=== PATIENT | female | born 1935 | race Caucasian/White ===

== ENCOUNTER 2017-03-17 06:27 | Inpatient (IN) | payer MEDICARE, BC ==
[2017-03-17] MEDS ORDERED: Ondansetron INJ* 2 MG/ML VIAL IV ONE (07:37)
[2017-03-17] MEDS ORDERED: Morphine INJ* 2 MG/ML 1 ML SYRINGE IV ONE ×2 (07:37→10:36)
[2017-03-17] MEDS ORDERED: NS 0.9% 1000 ML* 1,000 ML IV ONE (07:37)
[2017-03-17 07:54] LABS: Hematocrit 36 % (35-47); Hemoglobin 11.6 g/dl (12.0-16.0); Mean Corpuscular HGB Conc 32 g/dl (31-36); Mean Corpuscular Hemoglobin 29 pg (27-31); Mean Corpuscular Volume 90 fL (80-97); Mean Platelet Volume 9 um3 (7.4-10.4); Red Blood Count 4.02 10^6/ul (4.0-5.4); Red Cell Distribution Width 13 % (10.5-15); White Blood Count 11.1 10^3/ul (3.5-10.8)
[2017-03-17 08:05] LABS: Albumin 4.1 g/dL (3.2-5.2); BUN/Creatinine Ratio 37.3 (8-20); Calcium 9.6 mg/dL (8.6-10.3); EGFR Non-African American 47.4 (>60); Globulin 3.1 g/dL (2-4); Potassium 4.4 mmol/L (3.5-5.0); Total Bilirubin 0.7 mg/dL (0.2-1.0); Total Protein 7.2 g/dL (6.4-8.9)
[2017-03-17] MEDS ORDERED: Iodixanol* (CONTRAST) 320 MG/ML 100 ML SDV IV ONE (08:09)
[2017-03-17 08:42] LABS: Urine Bacteria Absent (Absent); Urine Bilirubin Negative (Negative); Urine Glucose Negative (Negative); Urine Nitrite Negative (Negative)
--- NOTE | 2017-03-17 10:19 | RAD ---
CLINICAL HISTORY: Left lower quadrant tenderness COMPARISON: None TECHNIQUE: Multiple contiguous axial CT scans were obtained of the abdomen and pelvis after the administration of intravenous contrast. Coronal and sagittal multiplanar reformations are submitted for review. Oral contrast was administered. Delayed images were obtained through the abdomen and pelvis. FINDINGS: LUNG BASES: There is a calcified granuloma of the right lung base LIVER: There is a simple hepatic cyst in the left lobe. BILE DUCTS: There is no intrahepatic or extrahepatic biliary dilatation. GALLBLADDER: The gallbladder is normal, without pericholecystic inflammatory change. PANCREAS: The pancreas is normal, without mass or ductal dilatation. SPLEEN: Normal in size and appearance. UPPER GI TRACT: Evaluation of the gastrointestinal tract is limited by incomplete gastric distention. There is mucosal thickening of the gastric antrum and pylorus with probable ulceration in the region of the pylorus. There is trace amount of free intraperitoneal gas SMALL BOWEL AND MESENTERY: The small bowel is normal in contour, course, and caliber. There is no obstruction or dilatation. COLON: The colon is normal in contour, course, caliber. There is no pericolonic inflammatory change. ADRENALS: Normal bilaterally. KIDNEYS: The kidneys are normal in shape, size, contour, and axis. There is no hydronephrosis or nephrolithiasis. BLADDER: There is a diverticulum of the bladder on the right, measuring approximately 2.5 cm in size. PELVIC ORGANS: The pelvic organs are not visualized. AORTA: There is calcific atherosclerotic disease of the abdominal aorta and its branches, without aneurysmal dilatation IVC: Unremarkable LYMPH NODES: There is no lymphadenopathy by size criteria. ABDOMINAL WALL: There is no evidence for abdominal wall hernia. BONES AND SOFT TISSUES: There are mild diffuse degenerative changes. OTHER: There is a small amount of free intraperitoneal fluid. As noted above, there is a small amount of free intraperitoneal gas. IMPRESSION: 1. SMALL AMOUNT OF FREE INTRAPERITONEAL GAS AND FREE INTRAPERITONEAL FLUID CONSISTENT WITH PERFORATION. 2. THERE IS MUCOSAL THICKENING AND ULCERATION OF THE DISTAL STOMACH AND PYLORUS. THE DIFFERENTIAL INCLUDES PEPTIC ULCER DISEASE, WELL ULCERATED MUCOSAL NEOPLASM. THIS IS LIKELY THE SITE OF PERFORATION GIVEN THE PRESENCE OF FREE AIR. 3. PRELIMINARY FINDINGS WERE DISCUSSED WITH DR. LYLE IN THE EMERGENCY DEPARTMENT AT APPROXIMATELY 10:15 AM ON MARCH 17, 2017.
[2017-03-17] MEDS ORDERED: Piperac/Tazob 3.375 gm in NS* 3.375 GM/100 ML BAG IVPB ONE ×2 (10:20→12:00)
[2017-03-17] MEDS ORDERED: Ondansetron INJ* 2 MG/ML VIAL IV PRN (11:20)
[2017-03-17] MEDS ORDERED: HYDROmorphone* 1 MG/ML 1 ML SYR IV PRN (11:20)
[2017-03-17] MEDS ORDERED: Piperac/Tazob 3.375 gm in NS* 3.375 GM/100 ML BAG IVPB SCH (16:00)
[2017-03-17] MEDS: Piperac/Tazob 3.375 gm in NS* 3.375 GM/100 ML BAG IVPB SCH ×2 (16:49→23:14)
--- NOTE | 2017-03-17 17:44 | HP ---
ADMISSION HISTORY AND PHYSICAL: DATE OF ADMISSION: 03/17/17 PATIENT OF: Dr. Arnie Dash. (DICTATED BY JERMAINE MENCHACA) REASON FOR ADMISSION: Abdominal pain. HISTORY OF PRESENT ILLNESS: Ms. Santos is a pleasant 81-year-old female, who presented to the emergency room earlier this morning with complaints of progressively worsening epigastric and left upper quadrant abdominal pain since this morning. The patient reports that she had experienced some vague upper abdominal discomfort on and off for the last few days that has gotten significantly worse about 3 o'clock this morning. She reports also episodes of nausea and a couple of times of vomiting as well. She was awaken this morning with increased intensity and sharpness of her pain. She called her friend and she came to the emergency room later this morning. She has never experienced anything like that in the past. The patient denies any alcohol intake. She does note having taken some more aspirin in the last week due to some arthritic aches and pains. During her emergency room visit, she was noted to have no distention of the abdomen; however, CT scan of the abdomen and pelvis revealed findings consistent with perforated viscus likely perforated peptic ulcer. At the time of admission, the patient experienced some mild episode of abdominal pain that was relieved by sitting up straight. She described it as sharp pain localized to the left upper quadrant with radiation to the epigastric area. She denied any nausea or vomiting at this time. She also denies any changes in the bowel habits or dark coloration of the stools. Otherwise, the patient was relatively healthy prior to her episode of abdominal pain. She has significant past medical history that was revealed from her old records as well. Given her CT scan findings, we will admit the patient for IV hydration and antibiotic treatment and likely to be taken to the OR later today for diagnostic laparoscopy and possible repair of a perforated ulcer. PAST MEDICAL HISTORY: Significant for essential hypertension, congenital aortic coarctation, migraine, and rosacea. PAST SURGICAL HISTORY: Significant for repair of congenital aortic coarctation in [place] as well as heart catheterization, and aortic valve replacement back in 1991 at the [facility]. She also has history of hysterectomy with removal of tumors and adhesions back in 1982. She also had removal of uterine cyst and ovarian cyst back in 1972. She also had multiple D and C back in the late 60s as well as heart catheterization in [place] back in the mid 80s. She also had bilateral cataract extraction back in 2009 as well as biopsy and lumpectomy of the right breast for a benign tumor back in 2002. The patient also had multiple orthopedic surgeries including neuroma excision from her foot and right hand orthopedic surgery due to a history of osteoarthritis. She also had a large mole removed from her left buttock back in 1940s as well as tonsillectomy and adenoidectomy as a child. CURRENT MEDICATIONS: Her medications at home include: 1. Fosamax 70 mg p.o. q. week. 2. Vitamin C tablets 250 mg q. daily. 3. Lipitor 10 mg q.h.s. 4. Calcium carbonate 1 tablet a day. 5. Enalapril 5 mg q. daily. 6. Mobic 15 mg b.i.d. 7. Metronidazole topical cream use as instructed at affected areas. ALLERGIES: She has no known drug allergies. FAMILY HISTORY: She denies any family history of peptic ulcer disease or colorectal malignancies. SOCIAL HISTORY: The patient is a nonsmoker who denies alcohol intake and caffeine intake is minimal REVIEW OF SYSTEMS: See HPI, otherwise negative. She denies any headache, dizziness, syncope. No chest pain, shortness of breath, or wheezing. She denies any fever, chills, or recent changes in weight. She does admit to abdominal pain with associated nausea and vomiting, but denies any changes in the bowel habits or bleeding per rectum. PHYSICAL EXAMINATION GENERAL: She is a pleasant, elderly female, comfortable, sitting on bed and in no acute distress or discomfort. VITALS: Her most recent set of vitals revealed blood pressure of 168/63, pulse of 83, respirations of 16, O2 sat of 98% on room air, and temperature of 99 degrees. HEENT: Sclerae anicteric. PERRLA. EOMs intact. Oropharynx is pink, moist with no exudate. Neck: Supple. Trachea midline. No cervical adenopathy, thyromegaly, or JVD. Lungs: Clear to auscultation bilaterally. Heart: Regular rate and rhythm. Normal S1 and S2 without rubs, murmurs, or gallops. Back: With normal curvature. No CVA tenderness. Abdomen: Soft and nondistended. There is moderate left upper quadrant and epigastric tenderness noted. Some guarding as well, but no rigidity or rebound tenderness. There are no hernias, masses, or organomegaly. Old scars from prior abdominal surgeries were noted, all appeared to be well healed. Breast Exam: Deferred at this time. Extremities: Without cyanosis, clubbing, or edema. Neurologic: Grossly intact. Rectal Exam: Deferred at this time. LABORATORY WORKUP: The patient had CBC at the emergency room revealing a white count of 11,000, hemoglobin 11.6, hematocrit 36, and platelets of 310. Chemistry with sodium of 139, potassium 4.4, chloride 105, CO2 23, BUN 41, and creatinine of 1.1. Her lactic acid was 2.9 and LFTs and lipase essentially within normal limits. ACCESSORY DIAGNOSTIC DATA: CT scan of the abdomen and pelvis performed this morning revealed findings consistent with a small amount of free intraperitoneal gas and fluid consistent with perforation with some mucosal thickening and ulceration of the distal stomach that likely represent a perforated peptic ulcer disease. IMPRESSION: An elderly female with worsening abdominal pain and CT scan finding consistent with probable perforated peptic ulcer. PLAN: The patient will be admitted under surgical services. We will keep her n.p.o. for now with IV resuscitation, GI, and DVT prophylaxis. She will also be given antibiotics and I discussed with her proceeding with the surgical intervention this afternoon. She appears to have perforated peptic ulcer given her recent use of Mobic for her arthritic aches and pains. We will likely take her to the operating room for a diagnostic laparoscopy and repair of the peptic ulcer perforation, likely perform laparotomy and furtherly explore the abdomen as needed. The rationale, indications, risks, and benefits of surgery were discussed with her today. Risks include, but not limited to infection, bleeding , or injury to adjacent structures. She appears to understand and wishes to proceed as outlined. Given her significant past medical history, we asked for the hospitalist's consultation to obtain medical clearance and also for postoperative management. Her EKG was ordered in the ED and showed some mild ST depressions at the lateral leads likely from previous surgeries and known history of coronary artery disease as well. We will contact anesthesia for further recommendation and also we will discuss the case with Dr. Dash and follow her up accordingly. JERMAINE MENCHACA CC: Dr. Arnie Dash; Riir Reynolds MD; Haylee Valencia DO * [id number]/[facility] #: [id number] ANJANA
[2017-03-17] MEDS ORDERED: Bupivacaine 0.5% W/EPI SDV* 30 ML VIAL ONE (18:25)
--- NOTE | 2017-03-17 18:50 | CONS ---
CONSULTATION REPORT: DATE OF CONSULT: 03/17/17 HISTORY OF PRESENT ILLNESS: Ms. Santos is an 81-year-old female patient. She has a history of hypertension, hyperlipidemia, glaucoma, osteoporosis, cataracts. She had a history of coarctation of the aorta, which was fixed when she was in her 50s. She comes in to the ER today stating that over the last 3 to 4 days, she had had progressive worsening nausea. Then, around 3:30 this morning, she had a sudden onset of lower abdominal discomfort and pain. She says that her belly was a little bit more distended. She said that she had a bowel movement this morning that was not tarry or bloody. She says that she was concerned. She called her friend, Mavis and her friend, Mavis, was concerned because the patient usually never asks for any help. She is very independent and very self-sufficient. The patient was asking for Mavis to take her to the hospital, as she felt that there was something seriously wrong. Her friend took her to the hospital. They were going to urgent care, but she decided to come here. Ultimately, there was a concern for the patient because she was found to have a perforated viscus. We were asked to evaluate in consult because she does have a medical history, in addition that her EKG preoperatively appeared to be abnormal. In evaluating the patient, she says prior to this, she goes up and down her stairs 5 to 6 times a day to her basement. She does not get chest pain or shortness of breath. She works outside in her yard for hours at a time. Her friend, Mavis, states that often time she forgets to eat because she was often working such long hours in the outside. She said she has not had any recent chest pain nor shortness of breath , no orthopnea, and no recent fevers, or cough, or chills. She says that she had been feeling well up until these last few days prior to coming into admission. Again, we were asked to evaluate for medical evaluation and postoperative medical management. PAST MEDICAL HISTORY: Significant for: 1. Hypertension. 2. Hyperlipidemia. 3. Cataracts. 4. Glaucoma. 5. Osteoporosis. 6. Coarctation of the aorta. PAST SURGICAL HISTORY: She has had: 1. Cataract extraction. 2. Left thumb surgery. 3. Cataracts in 2009. 4. Biopsy of the right breast that was benign. 5. Neuroma of the left foot. 6. Tonsillectomy. 7. Heart catheterization in 1967. 8. D and C. 9. Hysterectomy. 10. Uterine tumor, ovarian cyst removed. 11. Congenital aortic coarctation repair, 1991. 12. Rotator cuff repair. MEDICATIONS: Home meds according to the list that we were able to obtain include: 1. Klaron 10% topically daily as needed. 2. Metronidazole 1% topically daily. 3. Mobic 15 mg p.o. b.i.d. 4. Vasotec 2.5 mg p.o. daily. 5. Calcium with vitamin D 1 tablet p.o. daily. 6. Simbrinza ophthalmic 1 drop both eyes q.a.m. 7. Lipitor 5 mg daily. 8. Vitamin C 250 mg p.o. daily. 9. Fosamax 70 mg p.o. weekly. ALLERGIES TO MEDICATIONS: Include no known drug allergies. FAMILY HISTORY: Bother her parents had history of coronary artery disease, but later in life. SOCIAL HISTORY: She does not smoke. She does drinks about a glass of wine a day. She lives alone. Her surrogate decision maker is her friend, Collin. REVIEW OF SYSTEMS: There is no documented fever. She denied having any significant weight change. There was no double vision. She denies having any ear discharge. There is no rhinorrhea. No sore throat. No thyroid enlargement. Denied having any chest pain. No orthopnea, no nocturnal dyspnea. There was abdominal pain from my HPI. There was some nausea. There was no vomiting. No dysuria, no frequency. No seizure, no loss of consciousness. No pruritus and no skin ulcerations. Review of 14 systems completed, all others negative. PHYSICAL EXAM: Reveals vital signs: Blood pressure 151/65 with a pulse 88, respirations 16, O2 sat 100%, temperature 98.2. General: At this time, Ms. Santos is an 81-year-old female patient. She appears well-nourished, well- developed. She does not appear to be in any acute distress. HEENT: Head is atraumatic, normocephalic. Eyes: EOMs are intact. Sclerae anicteric, not pale. Throat: Oral mucosa appeared to be dry. No oropharyngeal erythema. Neck : Supple. Lungs: Clear to auscultation bilaterally. No wheezes, rales, or rhonchi. Heart sounds S1 and S2, regular rate and rhythm. No murmurs, rubs, or gallops. Abdomen was mildly distended. There was some rigidness noted. She did have some tenderness in the left upper and left lower quadrants and she had some guarding as well. Bowel sounds were present. Extremities: Pulses were 2 + throughout. She is able to move all 4 extremities. Neurologically, she is awake, alert, and oriented x3. No gross focal deficits. Skin is intact. DIAGNOSTIC STUDIES/LAB DATA: Today revealed WBC 11.1, RBC of 4.02, hemoglobin 11.6, platelets 310. Sodium was 139, potassium 4.4, chloride of 105, bicarb 23 , BUN 41, creatinine 1.10, glucose of 183, lactate 2.9, calcium 9.6. Total bili 0.7, AST 32, ALT 14. Lipase was 91. Urine showed 1+ protein, 1+ ketones. She had abdomen and pelvis CT scan obtained today which revealed, impression: Small amount of free intraperitoneal gas and free intraperitoneal fluid consistent with perforation. There is mucosal thickening, ulceration of the distal stomach and pylorus. Differential includes peptic ulcer disease as well as ulcerated mucosal neoplasm, this is likely in the setting of a perforation given the free air. She had an EKG obtained today as well, which revealed a normal sinus rhythm at rate of 85 with a right bundle branch block. She did have ST depression in V5 and V6, along with V4. She does have a previous EKG, which does show right bundle branch block with minimal ST depression in V5 and V6, but it is more pronounced today, but the right bundle branch block is not new. She did have an echo back in July which showed an EF of 60% to 65% and normal global wall motion with this echo. The patient's old medical records were reviewed. ASSESSMENT AND PLAN: Ms. Santos is an 81-year-old female patient coming in to the ER today with complaints of abdominal pain, found to have a perforated viscus. She will be admitted under inpatient status by Surgery and we were asked to evaluate in consult. Recommendations at this point are: 1. Perforated viscus. I will defer the management to Dr. Dash and his team. In terms of perioperative risk stratification, her RCRI is 1; however, I think she is a little bit higher given her advanced age. I would probably classify her as moderate risk for surgery, although this is an emergent surgery and typically again higher risk. However, the EKG, again there is some increased ST depression; however she is not having any cardiac symptoms, this could just be demand related changes on the EKG secondary to the perforated viscus. I think that the risk of not performing the procedure certainly outweighs the risk of doing the procedure. The patient again preoperatively had a very healthy lifestyle and in addition was very active, so I think she would do well postoperatively, but she again does have risk. With close followup by ourselves and Surgery, we can again proceed with the OR as she is medically optimized. Antibiotics have been ordered and she is receiving IV fluids. 2. Hypertension. At this point, hold her meds as prescribed. 3. Hyperlipidemia. Hold medications. 4. Cataracts/glaucoma. Continue meds as prescribed. 5. Osteoporosis. Follow with primary. 6. DVT prophylaxis. Deferred to the primary team. 7. Code status. Full code. 8. Fluids, electrolytes, and nutrition. She is NPO. TIME SPENT: On the consult was approximately 70 minutes, greater than half the time was spent [id number] with the patient obtaining my history and physical; other half the time was spent going over the plan of care with the patient and implementing the plan of care. I did discuss the plan of care with my attending, Dr. Valencia; she is in agreement. JARETT ROSALES NP CC: Dr. Dash; Dr. Reynolds* [id number]/[facility] #: [id number] ANJANA
[2017-03-17] MEDS ORDERED: fentaNYL* 50 MCG/ML 2 ML VIAL (100 MCG VIAL) ONE ×2 (19:20→21:30)
[2017-03-17] MEDS ORDERED: Lidocaine 2% PF * 5 ML VIAL ONE (19:21)
[2017-03-17] MEDS ORDERED: Propofol* 10 MG/ML 20 ML BTL IV PUSH ONE (19:21)
[2017-03-17] MEDS ORDERED: Cisatracurium* 2 MG/ML MDV 5 ML ONE (19:21)
--- NOTE | 2017-03-17 21:14 | PN ---
Progress Note - Progress Note Note: Brief operative note: Pre-op: Perforated viscus Post-op: Perforated gastric ulcer Procedure: Laparoscopic repair of perforated gatric ulcer with omental patch Surgeon: Pbx Supervisor: Dionna Ahuja Tg: VANI EBL: Minimal Drains: FREDRICK to self-suction Catheter: Crespo to gravity Specimen: None Findings: See dictated op note
[2017-03-17] MEDS: fentaNYL* 50 MCG/ML 2 ML VIAL (100 MCG VIAL) IV PRN ×2 (21:32→21:50)
[2017-03-17] MEDS: Pantoprazole IV* 40 MG IV SCH (23:09)
[2017-03-18] MEDS: Piperac/Tazob 3.375 gm in NS* 3.375 GM/100 ML BAG IVPB SCH ×4 (05:13→23:56)
[2017-03-18] MEDS: Heparin VIAL(*) 5000 UNITS/ML VIAL (FIVE THOUSAND) SUBCUT SCH ×3 (05:15→22:07)
[2017-03-18 05:51] LABS: Hematocrit 27 % (35-47); Hemoglobin 8.9 g/dl (12.0-16.0); Mean Corpuscular HGB Conc 33 g/dl (31-36); Mean Corpuscular Hemoglobin 29 pg (27-31); Mean Corpuscular Volume 88 fL (80-97); Mean Platelet Volume 10 um3 (7.4-10.4); Red Blood Count 3.05 10^6/ul (4.0-5.4); Red Cell Distribution Width 13 % (10.5-15); White Blood Count 10.7 10^3/ul (3.5-10.8)
[2017-03-18 06:05] LABS: BUN/Creatinine Ratio 27.7 (8-20); Calcium 7.7 mg/dL (8.6-10.3); EGFR African American 84.4 (>60); EGFR Non-African American 65.7 (>60); Potassium 3.8 mmol/L (3.5-5.0)
--- NOTE | 2017-03-18 09:41 | PN ---
Progress Note - Progress Note SOAP: Subjective: She reports no pain. No N/V. She states she feels "good" after washing up. NGT bothers her. Objective: Vital Signs Temp 98.0 F 03/18/17 07:35 Pulse 72 03/18/17 07:35 Resp 18 03/18/17 08:33 BP 146/49 03/18/17 07:35 Pulse Ox 100 03/18/17 07:35 NAD Chest: lungs CTA B; heart reg S1S2 with murmur Abd: incis c/d/i; FREDRICK with SS o/p; soft, NT; no BS. Ext: warm Intake & Output 03/17/17 03/18/17 03/18/17 18:59 06:59 18:59 Intake Total 1100 3359 Output Total 200 635 Balance 900 2724 Weight 97 lb Intake: IV Fluids 1100 3359 ABX - ZOSYN 240 LR 2906 NS 100ML, Zosyn 3.375G 100 famotidine 113 Oral 0 Output: NG Tube Drainage Amount 25 FREDRICK #1 35 Urine 200 Beltran 575 Other: # Bowel Movements 0 Assessment: POD#0-1 s/p lap repair perf with omental patch. Doing remarkably well. Plan: NPO, NGT. IV Zosyn. PPI IV BID. Await H. pylori testing. Keep beltran until tomorrow for monitoring u/o given peritonitis and may third space. Mobilize with assistance. Likely to stay 5-7 days. Surgical findings and plan d/w patient who understands and agrees.
[2017-03-18] MEDS: Pantoprazole IV* 40 MG IV SCH ×2 (10:12→22:07)
--- NOTE | 2017-03-18 11:47 | PN ---
Subjective Date of Service: 03/18/17 Interval History: This is an 81 yo female with HTN, HLD, glaucoma and h/o coarctation of the aorta s/p repair who presented with a perforated gastric ulcer now s/p laproscopic repair with omental patch. Hospitalists have been asked to consult regarding medical co-management. This am, patient is feeling quite well. She has minimal pain. She has a hoarse voice, but otherwise denies CP, SOB, n/v. She has not passed gas since sugery. Objective Active Medications: Brinzolamide/Brimonidine Tartrate (Simbrinza Oph.Susp(Nf)) 1 drop BOTH EYES QAM [facility] Heparin Sodium (Porcine) (Heparin Vial(*)) 5,000 units SUBCUT Q8HR [facility] Last Admin: 03/18/17 05:15 Dose: 5,000 units Hydromorphone HCl (Dilaudid Iv*) 0.5 mg IV Q1H PRN PRN Reason: PAIN - SEVERE Piperacillin Sod/Tazobactam Sod (Zosyn 3.375 Gm In Ns Premix*) 3.375 gm in 100 mls @ 200 mls/hr IVPB Q6H [facility] Last Admin: 03/18/17 10:12 Dose: 200 mls/hr Lactated Ringer's (Lactated Ringers 1000 Ml Bag*) 1,000 mls @ 125 mls/hr IV .per rate [facility] Last Admin: 03/18/17 06:16 Dose: 125 mls/hr Ondansetron HCl (Zofran Inj*) 4 mg IV Q4H PRN PRN Reason: NAUSEA/VOMITING Pantoprazole Sodium (Protonix Iv*) 40 mg IV Q12H [facility] Last Admin: 03/18/17 10:12 Dose: 40 mg Vital Signs: Temp Pulse Resp BP Pulse Ox 98.0 F 72 18 146/49 100 03/18/17 07:35 03/18/17 07:35 03/18/17 08:33 03/18/17 07:35 03/18/17 07:35 Appearance: Well appearing, very pleasant, in NAD Neck: NL Appearance and Movements; NL JVP Respiratory: Symmetrical Chest Expansion and Respiratory Effort, Clear to Auscultation Cardiovascular: RRR, - - 3/6 murmur Abdominal: - - abd soft, FREDRICK drain in place, few faint bowel sounds, minimal pain Extremities: No Edema Skin: No Rash or Ulcers Neurological: Alert and Oriented x 3 Result Diagrams: 03/18/17 04:28 03/18/17 04:28 Assess/Plan/Problems-Billing Assessment: This is an 81 yo female with HTN, HLD, glaucoma, and h/o coarctation of the aorta s/p repair who presented with a perforated gastric ulcer who is now s/p repair. Hospitalist group has been asked to consult for medical co-management. - Patient Problems (1) Perforated gastric ulcer Comment: POD #1 s/p laproscopic repair Management per surgery NG tube and FREDRICK drain in place Cont Zosyn (2) MUNIRA (acute kidney injury) Comment: Resolved Secondary to hypovolemia (3) RBBB Comment: Non-specific ST seg changes on EKG remain unchanged No cardiac complaints No need for further evaluation or work up at this time (4) HTN (hypertension) Comment: Noted mild hypertensive postoperatively Cont to hold enalipril until she is able to take orals No need for IV BP control at this time (5) HLD (hyperlipidemia) (6) Glaucoma (7) History of aortic coarctation repair (8) Full code status (9) DVT prophylaxis Comment: Heparin SQ per surgery Status and Disposition: Disposition per surgery. Hospitalists will continue to follow along.
--- NOTE | 2017-03-18 12:29 | OP ---
DATE OF OPERATION: 03/17/17 - ROOM #336 DATE OF : 31 SURGEON: Arnie Dash MD POLYMER ENGINEER: JERMAINE Cross ANESTHESIOLOGIST: Gustavo Altamirano DO ANESTHESIA: General endotracheal. PRE-OP DIAGNOSIS: Perforated viscus. POST-OP DIAGNOSIS: Perforated gastric ulcer. OPERATIVE PROCEDURE: Laparoscopic omental patch repair, perforated gastric ulcer, lysis of adhesions, and drain placement. ESTIMATED BLOOD LOSS: Less than 50 mL. IV FLUIDS: Crystalloid. SPECIMEN: None. DRAINS: 10-mm Red-Thornton. COMPLICATIONS: None. COUNT: Instrument, needle, and sponge counts were correct. DESCRIPTION OF PROCEDURE: The patient was brought to the operating room and placed on the table supine. Sequential compression devices were placed on both lower extremities. General anesthesia was administered. Crespo catheter was placed. The abdomen was prepped and draped in the usual sterile fashion. Time- out was performed. Local anesthetic was infiltrated into the skin and soft tissue prior to making each incision. The infraumbilical vertical incision was used to access the peritoneal cavity and using the open technique, an 11-mm trocar was placed into the peritoneum and carbon dioxide was insufflated to a pressure of 15 mmHg. Laparoscope was introduced and immediately identified was a perforated prepyloric gastric ulcer. The edges appeared clean. There was no extravasating fluid. Inspection of the remaining of the peritoneal cavity revealed free fluid in the area of the pelvis as well as fibrinous exudate over portions of the omentum and in the left upper quadrant and pelvis as well. Additional 5-mm trocars were placed, one in the left upper quadrant, one in the left lower quadrant. Nasogastric tube was inserted by Anesthesiology and positioned with the tip in the antrum of the stomach. It was securely taped to the nose. Inspection of the ulcer revealed it to be 2 cm across. The ulcer was closed using three sutures of 2-0 silk placed transversely with good visualization of the pylorus to be sure that there was no encroachment upon it. The sutures were tied down sequentially and then a tongue of omentum was brought cephalad to cover the defect and the suture was passed through the omentum to secure it and each suture was tied down, 4th suture was used to additionally tack the omentum to the antrum of the stomach more proximally. After completing this, 6 L of warm saline was used to lavage the peritoneal cavity in all 4 quadrants paying particular attention to the pelvis and the subdiaphragmatic spaces and the sites were irrigated until clear. There was a single adhesion of small bowel to what appeared to be remnant of the fallopian tube on the right side that was lysed. Lastly, a 10-mm Red-Thornton drain was placed in the peritoneal cavity and positioned to overlap the area of the repair and to terminate in the area of Morison's pouch. The drain was sutured to the skin with 3-0 Surgipro. Ports were then removed under direct visualization, carbon dioxide was released. The infraumbilical wound was closed with 0 Polysorb in figure-of-8 fashion to approximate the fascia. Skin incisions were closed with 4-0 Monocryl in subcuticular fashion. Steri-Strips were applied. FREDRICK drain was placed with suction bulb. The patient was extubated uneventfully and she was transferred to the recovery room in a stable condition. CC: Riri Reynolds MD* [id number]/[facility] #: [id number] ANJANA
[2017-03-18] MEDS: Brinzolamid/Brimonidin OPH(NF) 1 DROP BTL BOTH EYES SCH (12:53)
--- NOTE | 2017-03-18 16:01 | PN ---
Progress Note - Progress Note SOAP: Subjective: Asked by nurse to evaluate patient for low urine output. Patient herself denies any complaints. Her pain is under control. Objective: Awake and alert, in NAD VSS, afebrile Abdomen soft, NT, ND Crespo with clear urine, output is 250cc for past 8 hrs. Assessment: POD#1, s/p diagnostic laparoscopy with Star's patch repair of perforated gastric ulcer. Plan: Will give a bolus of 500cc 0.9% NS Likely still catching up with her fluids, given the fact she has not had much PO intake last 3 days GI and DVT prophylaxis
[2017-03-18] MEDS: NS 0.9% 500 ML BAG* 500 ML IV ONE ×2 (16:13→16:43)
[2017-03-18] MEDS ORDERED: hydrALAZINE IV* 20 MG/ML VIAL ONE (19:51)
[2017-03-19 05:08] LABS: Hematocrit 28 % (35-47); Hemoglobin 9.4 g/dl (12.0-16.0); Mean Corpuscular HGB Conc 33 g/dl (31-36); Mean Corpuscular Hemoglobin 29 pg (27-31); Mean Corpuscular Volume 88 fL (80-97); Mean Platelet Volume 9 um3 (7.4-10.4); Red Cell Distribution Width 13 % (10.5-15); White Blood Count 10.5 10^3/ul (3.5-10.8)
[2017-03-19] MEDS: Piperac/Tazob 3.375 gm in NS* 3.375 GM/100 ML BAG IVPB SCH ×4 (05:49→23:23)
[2017-03-19] MEDS: Heparin VIAL(*) 5000 UNITS/ML VIAL (FIVE THOUSAND) SUBCUT SCH ×3 (05:50→22:18)
[2017-03-19] MEDS: hydrALAZINE IV* 20 MG/ML VIAL IV SLOW PU PRN ×2 (07:49→22:11)
--- NOTE | 2017-03-19 10:09 | PN ---
Progress Note - Progress Note SOAP: Subjective:awake and alert,oriented;denies pain;no flatus;voided since beltran out ;wants to walk in heard [] Objective:afeb,tachy 100-104,lungs:clear bilat;Heart:RRR,soft sys m;abd:few bs; soft;nondistended;incicsions intact with steris;FREDRICK serous,patent;ext:SCDs on Vital Signs Temp 98.2 F 03/19/17 07:34 Pulse 90 03/19/17 07:34 Resp 18 03/19/17 07:55 BP 178/74 03/19/17 07:34 Pulse Ox 99 03/19/17 07:34 Intake & Output 03/18/17 03/19/17 03/19/17 18:59 06:59 18:59 Intake Total 972 2560 Output Total 395 2065 150 Balance 577 495 -150 Intake: IV Fluids 867 2460 ABX - ZOSYN 500 LR 837 1960 NS 30 IVPB 105 100 ABX - ZOSYN 105 100 Oral 0 Output: NG Tube Drainage Amount 75 150 FREDRICK #1 70 90 Beltran 250 1825 150 Other: Estimated Void Small Date of Last Bowel 03/19/17 Movement # Bowel Movements 1 Estimated Stool Amount Small # Voids 1 [] Assessment:doing well,tachy but no chest pain or dyspnea;uo improved after bolus 03/18/17 [] Plan:Leave NG today,UGI series 03/20/17;discuss tachycardia with Hosp;ok to clamp NG when walking in halls []
[2017-03-19] MEDS: Brinzolamid/Brimonidin OPH(NF) 1 DROP BTL BOTH EYES SCH (10:11)
[2017-03-19] MEDS: Pantoprazole IV* 40 MG IV SCH ×2 (10:58→22:01)
--- NOTE | 2017-03-19 13:00 | PN ---
Subjective Date of Service: 03/19/17 Interval History: Patient became quite hypertensive overnight with sBP reaching 200 mmHg. Patient was treated with hydralazine. Surgical team noted that she was tachycardic on exam this am. Patient reports that she continues to feel quite well. She reports only minimal pain. No CP, SOB, SUE or visual changes. No nausea or vomiting. She had a BM this am. Urinary catheter was removed this am. Objective Active Medications: Brinzolamide/Brimonidine Tartrate (Simbrinza Oph.Susp(Nf)) 1 drop BOTH EYES QAM [facility] Last Admin: 03/19/17 10:11 Dose: Not Given Heparin Sodium (Porcine) (Heparin Vial(*)) 5,000 units SUBCUT Q8HR [facility] Last Admin: 03/19/17 05:50 Dose: 5,000 units Hydralazine HCl (Apresoline Iv*) 10 mg IV SLOW PU Q4H PRN PRN Reason: SYSTOLIC BP OVER 175 MM[facility] Last Admin: 03/19/17 07:49 Dose: 10 mg Hydromorphone HCl (Dilaudid Iv*) 0.5 mg IV Q1H PRN PRN Reason: PAIN - SEVERE Last Admin: 03/18/17 22:14 Dose: 0.5 mg Piperacillin Sod/Tazobactam Sod (Zosyn 3.375 Gm In Ns Premix*) 3.375 gm in 100 mls @ 200 mls/hr IVPB Q6H [facility] Last Admin: 03/19/17 11:06 Dose: 200 mls/hr Potassium Chloride/Dextrose (D5w 1/2 Ns Kcl 20 Meq 1000 Ml*) 1,000 mls @ 50 mls /hr IV PER RATE [facility] Ondansetron HCl (Zofran Inj*) 4 mg IV Q4H PRN PRN Reason: NAUSEA/VOMITING Pantoprazole Sodium (Protonix Iv*) 40 mg IV Q12H [facility] Last Admin: 03/19/17 10:58 Dose: 40 mg Vital Signs: Temp Pulse Resp BP Pulse Ox 97.9 F 95 16 162/66 100 03/19/17 11:32 03/19/17 11:32 03/19/17 11:32 03/19/17 11:32 03/19/17 11:32 Appearance: Well appearing in NAD. NG tube in place. Accompanied by a friend. 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 Hospitalist group has been asked to consult for medical co-management. - Patient Problems (1) Perforated gastric ulcer Comment: POD #2 s/p laproscopic repair Management per surgery NG tube and FREDRICK drain in place Remains NPO Cont Zosyn (2) MUNIRA (acute kidney injury) Comment: Resolved Secondary to hypovolemia (3) HTN (hypertension) Comment: She became quite hypertensive overnight She confirms she only takes a low dose enalipril for BP control at home and states that it has been under good control for the last several years. Denies assoc pain Will cont to treat with prn IV hydralazine and resume enalipril when she is able to take po again (4) RBBB Comment: Non-specific ST seg changes on EKG remain unchanged No cardiac complaints No need for further evaluation or work up at this time (5) HLD (hyperlipidemia) (6) Glaucoma (7) History of aortic coarctation repair (8) Full code status (9) DVT prophylaxis Comment: Heparin SQ per surgery Status and Disposition: Disposition per surgery. Hospitalists will continue to follow along.
[2017-03-19] MEDS: D5W 1/2 NS KCl 20 Meq 1000 ML* 1,000 ML IV SCH (21:50)
[2017-03-20] MEDS: Heparin VIAL(*) 5000 UNITS/ML VIAL (FIVE THOUSAND) SUBCUT SCH ×3 (05:35→22:27)
[2017-03-20] MEDS: Piperac/Tazob 3.375 gm in NS* 3.375 GM/100 ML BAG IVPB SCH ×4 (05:35→22:27)
--- NOTE | 2017-03-20 08:32 | PN ---
Progress Note - Progress Note SOAP: Subjective: Reports mild RLQ abd pain when she walked back from the bathroom. No other c/ o. Having BMs. Objective: Vital Signs Temp 98.7 F 03/20/17 07:25 Pulse 91 03/20/17 07:25 Resp 16 03/20/17 07:43 BP 167/76 03/20/17 07:25 Pulse Ox 100 03/20/17 07:25 Intake & Output 03/19/17 03/20/17 03/20/17 18:59 06:59 18:59 Intake Total 1975.8 786 Output Total 800 920 300 Balance 1175.8 -134 -300 Intake: IV Fluids 1523.8 681 D5W 1/2 NS 20 meq KCL 349 LR 1468 332 NS 55.8 IVPB 452 105 ABX - ZOSYN 452 105 Oral 0 Output: NG Tube Drainage Amount 350 FREDRICK #1 70 Urine 650 500 200 Crespo 150 Liquid Stool 100 Other: Estimated Void Small Medium Date of Last Bowel 03/19/17 03/20/17 Movement # Bowel Movements 1 1 Estimated Stool Amount Small Small # Voids 1 1 NAD abd: ND, soft, incis d/c/i, no erythema. NT. Assessment: POD#3 s/p lap repair perf with omental patch. Doing well. Plan: Contrast study today. If ok then can D/C NGT and start diet. Cont Zosyn and PPI. Await H.pylori testing. Likely discharge in 2-3 days. D/w pt.
[2017-03-20] MEDS: PTO: Brinzolamid/Brimonidin OPH(NF) 1 DROP BTL BOTH EYES SCH (09:13)
[2017-03-20] MEDS: Pantoprazole IV* 40 MG IV SCH ×2 (09:14→22:26)
--- NOTE | 2017-03-20 11:42 | RAD ---
INDICATION: Evaluate for extravasation status post gastric ulcer with perforation COMPARISON: CT March 17, 2017 TECHNIQUE: A small amount of Gastrografin (10 mL) was administered per nasogastric tube and digital fluoroscopy was of the GE junction, stomach, and duodenum was performed.. 1.1 minutes seconds of fluoroscopy was utilized. GE junction: The GE junction is normally positioned. Stomach: There is prompt filling the stomach without evidence of obstruction or extravasation. Small bowel: The duodenal C-loop appears normal. Other: There is residual contrast within the colon from earlier CT imaging. IMPRESSION: NO EVIDENCE OF OBSTRUCTION OR EXTRAVASATION CPT II Codes: 6045F PQRS (Fluoro time doc)
--- NOTE | 2017-03-20 11:50 | PN ---
Subjective Date of Service: 03/20/17 Interval History: Patient denies any acute concerns and states she is feeling better. She currently denies pain, CP, SOB, n/v, SUE or visual changes. She tolerated GI series this morning and is hopeful to have NGT removed. Family History: Unchanged from Admission Social History: Unchanged from Admission Past Medical History: Unchanged from Admission Objective Active Medications: Brinzolamide/Brimonidine Tartrate (Simbrinza Oph.Susp(Nf)) 1 drop BOTH EYES QAM [facility] Last Admin: 03/20/17 09:13 Dose: 1 drop Heparin Sodium (Porcine) (Heparin Vial(*)) 5,000 units SUBCUT Q8HR [facility] Last Admin: 03/20/17 05:35 Dose: 5,000 units Hydralazine HCl (Apresoline Iv*) 10 mg IV SLOW PU Q4H PRN PRN Reason: SYSTOLIC BP OVER 175 MM[facility] Last Admin: 03/19/17 22:11 Dose: 10 mg Hydromorphone HCl (Dilaudid Iv*) 0.5 mg IV Q1H PRN PRN Reason: PAIN - SEVERE Last Admin: 03/18/17 22:14 Dose: 0.5 mg Piperacillin Sod/Tazobactam Sod (Zosyn 3.375 Gm In Ns Premix*) 3.375 gm in 100 mls @ 200 mls/hr IVPB Q6H [facility] Last Admin: 03/20/17 11:17 Dose: 200 mls/hr Potassium Chloride/Dextrose (D5w 1/2 Ns Kcl 20 Meq 1000 Ml*) 1,000 mls @ 50 mls /hr IV PER RATE [facility] Last Admin: 03/19/17 21:50 Dose: 50 mls/hr Ondansetron HCl (Zofran Inj*) 4 mg IV Q4H PRN PRN Reason: NAUSEA/VOMITING Pantoprazole Sodium (Protonix Iv*) 40 mg IV Q12H [facility] Last Admin: 03/20/17 09:14 Dose: 40 mg Vital Signs 03/19/17 03/19/17 03/19/17 16:11 19:13 21:45 Temperature 98 F 98.4 F 99.1 F Pulse Rate 96 94 92 Respiratory 22 20 18 Rate Blood Pressure 146/97 174/81 171/76 (mmHg) O2 Sat by Pulse 99 99 99 Oximetry 03/19/17 03/20/17 03/20/17 23:13 03:46 07:25 Temperature 98.3 F 98.7 F Pulse Rate 100 94 91 Respiratory 16 18 16 Rate Blood Pressure 157/71 167/76 (mmHg) O2 Sat by Pulse 98 98 100 Oximetry 03/20/17 07:43 Temperature Pulse Rate Respiratory 16 Rate Blood Pressure (mmHg) O2 Sat by Pulse Oximetry Oxygen Devices in Use Now: None Appearance: Well appearing female, alert, NAD Eyes: PERRLA Respiratory: Symmetrical Chest Expansion and Respiratory Effort, Clear to Auscultation Cardiovascular: RRR - with 3/6 systolic murmur Abdominal: NL Sounds; No Tenderness; No Distention Extremities: No Edema Neurological: Alert and Oriented x 3 Lines/Tubes/Other Access: Clean, Dry and Intact Peripheral IV Result Diagrams: 03/19/17 04:10 03/18/17 04:28 Diagnostic Imaging: EKG - sinus RBBB Assess/Plan/Problems-Billing Assessment: This is an 81 yo female with HTN, HLD, glaucoma, and h/o coarctation of the aorta s/p repair who presented with a perforated gastric ulcer who is now s/p repair. Hospitalist group has been asked to consult for medical co-management. - Patient Problems (1) Perforated gastric ulcer Code(s): K25.5 - CHRONIC OR UNSPECIFIED GASTRIC ULCER WITH PERFORATION Comment : POD #3 s/p laproscopic repair Management per surgery NG tube and FREDRICK drain in place Remains NPO pending GI follow-through Cont Zosyn (2) MUNIRA (acute kidney injury) Code(s): N17.9 - ACUTE KIDNEY FAILURE, UNSPECIFIED Comment: Resolved Secondary to hypovolemia (3) HTN (hypertension) Code(s): I10 - ESSENTIAL (PRIMARY) HYPERTENSION Comment: Improved, continue prn hydralazine She confirms she only takes a low dose enalipril for BP control at home and states that it has been under good control for the last several years. Resume enalipril when she is able to take po again (4) RBBB Code(s): I45.10 - UNSPECIFIED RIGHT BUNDLE-BRANCH BLOCK SNOMED Code(s): 97951876 Comment: Non-specific ST seg changes on EKG remain unchanged No cardiac complaints No need for further evaluation or work up at this time (5) HLD (hyperlipidemia) Code(s): E78.5 - HYPERLIPIDEMIA, UNSPECIFIED Comment: Resume statin when able to take PO. (6) Glaucoma Code(s): H40.9 - UNSPECIFIED GLAUCOMA Comment: Continue home Simbrinza gtt. (7) History of aortic coarctation repair (8) DVT prophylaxis Code(s): BUP4655 - Comment: Heparin SQ per surgery (9) Full code status Code(s): Z78.9 - OTHER SPECIFIED HEALTH STATUS Status and Disposition: Disposition per surgery. Hospitalists will continue to follow along.
[2017-03-20] MEDS: hydrALAZINE IV* 20 MG/ML VIAL IV SLOW PU PRN (16:23)
--- NOTE | 2017-03-20 18:44 | ED ---
Chilo Mcghee Billy, scribed for Armando Pedersen MD on 03/17/17 at 0735 . Abdominal Pain/Female - HPI Summary HPI Summary: Patient is an 81 year-old female coming to [facility] after being woken up by LLQ pain at 0300 today. She states that she had been nauseated for the last week. Denies any diarrhea or blood in the stool. She had a BM this morning which improved the pain immediately, but the pain returned after 5 minutes. At this time, she reports a pain severity at 5/10, although she states it was much worse at onset. She denies any fever, chest pain, shortness of breath, dysuria, or hematuria. The patient has been eating normally for the last few days. She started a new pain medication for her arthritis about 1 week ago, although she is unable to recall its name. Denies any history of diverticulosis. - History of Current Complaint Chief Complaint: EDAbdPain Stated Complaint: ABD PAIN/NAUSEA Time Seen by Provider: 03/17/17 07:22 Hx Obtained From: Patient Onset/Duration: Sudden Onset, Lasting Hours, Still Present Timing: Constant Severity Initially: Moderate Severity Currently: Moderate Pain Intensity: 5 Pain Scale Used: 0-10 Numeric Location: Discrete At: LLQ Radiates: No Aggravating Factor(s): Nothing Alleviating Factor(s): Bowel Movement Associated Signs and Symptoms: Positive: Nausea. Negative: Fever, Chest Pain, Blood in Stool, Urinary Symptoms, Decreased Appetite, Diarrhea Allergies/Adverse Reactions: Allergies Allergy/AdvReac Type Severity Reaction Status Date / Time No Known Allergies Allergy Verified 03/26/16 13:33 PMH/Surg Hx/FS Hx/Imm Hx Endocrine/Hematology History: Reports: Hx Anemia - INTO HER 20'S- NO PROBLEMS NOW Denies: Hx Diabetes, Hx Thyroid Disease Cardiovascular History: Reports: Hx Hypertension - On meds, Hx Valvular Heart Disease Denies: Hx Congestive Heart Failure, Hx Deep Vein Thrombosis, Hx Myocardial Infarction, Hx Pacemaker/ICD Respiratory History: Denies: Hx Asthma, Hx Chronic Obstructive Pulmonary Disease (COPD), Hx Lung Cancer, Hx Pneumonia, Hx Pulmonary Embolism GI History: Denies: Hx Gall Bladder Disease, Hx Gastrointestinal Bleed, Hx Ulcer, Hx Urosepsis History: Denies: Hx Kidney Stones, Hx Renal Disease Musculoskeletal History: Reports: Hx Arthritis - ALL OVER Sensory History: Reports: Hx Cataracts - BILATERAL, Hx Contacts or Glasses - GLASSES, Hx Glaucoma - BILATERAL Denies: Hx Hearing Aid Opthamlomology History: Reports: Hx Cataracts - BILATERAL, Hx Contacts or Glasses - GLASSES, Hx Glaucoma - BILATERAL Neurological History: Reports: Hx Migraine - HISTORY OF IN THE PAST Denies: Hx Dementia, Hx Seizures, Hx Transient Ischemic Attacks (TIA) Psychiatric History: Denies: Hx Anxiety, Hx Depression, Hx Schizophrenia, Hx Bipolar Disorder - Surgical History Surgery Procedure, Year, and Place: 1939 [place]ILS [place]. 1967 CARDIAC CATH [place]. 1970 D/C [facility] [place]. 1972 UTERINE TUMOR AND O CYST [facility]. 1982 HYSTERECTOMY TUMOR [facility] [place]. 1991 C[place]IAC CATH [place]. 1991 CONGENITAL AORTA REPAIR [facility]. 1994 ROTATOR CUFF REPAIR AND BONE SPUR [facility] [place]. 1998 NEUROMA L FOOT [facility] [place]. 2002 RIGHT BREAST CALCIUM DEPOSIT NOT MALIGNANT [facility]. 2009 R [facility] Hx Anesthesia Reactions: No Infectious Disease History: No Infectious Disease History: Denies: History Other Infectious Disease, Traveled Outside the [place] in Last 30 Days - Family History Family History: Father with lung and prostate cancer. Mother with arthritis. - Social History Alcohol Use: None Alcohol Amount: 1 GLASS+ OF WINE 4 TIMES PER WEEK Substance Use Type: Reports: None Smoking Status (MU): Never Smoked Tobacco Review of Systems Negative: Fever, Chills Negative: Erythema Negative: Sore Throat Negative: Chest Pain Negative: Shortness Of Breath, Cough Positive: Abdominal Pain, Nausea. Negative: Vomiting, Diarrhea Negative: dysuria, hematuria Negative: Myalgia, Edema Negative: Rash All Other Systems Reviewed And Are Negative: Yes Physical Exam - Summary Physical Exam Summary: Constitutional: Well-developed, Well-nourished, Alert. (-) Distressed Skin: Warm, Dry, Pale HENT: Normocephalic; Atraumatic Eyes: Conjunctiva normal Neck: Musculoskeletal ROM normal neck. (-) JVD, (-) Stridor, (-) Tracheal deviation Cardio: Rhythm regular, rate normal, Heart sounds normal; Intact distal pulses; The pedal pulses are 2+ and symmetric. Radial pulses are 2+ and symmetric. There is a 3/5 systolic murmur. Pulmonary/Chest wall: Effort normal. (-) Respiratory distress, (-) Wheezes, (-) Rales Abd: Soft, Tenderness to the LLQ, (-) Distension, (-) Guarding, (-) Rebound Musculoskeletal: (-) Edema Lymph: (-) Cervical adenopathy Neuro: Alert, Oriented x3 Psych: Mood and affect Normal Triage Information Reviewed: Yes Vital Signs On Initial Exam: Initial Vitals Temp Pulse Resp BP Pulse Ox 99 F 86 20 157/84 98 03/17/17 06:47 03/17/17 06:47 03/17/17 06:47 03/17/17 06:47 03/17/17 06:47 Vital Signs Reviewed: Yes - Genia Coma Scale Coma Scale Total: 15 Diagnostics - Vital Signs Vital Signs Temp Pulse Resp BP Pulse Ox 03/17/17 06:49 99 F 86 20 157/84 99 03/17/17 06:47 99 F 86 20 157/84 98 - Laboratory Result Diagrams: 03/17/17 06:45 03/17/17 06:45 Lab Statement: Any lab studies that have been ordered have been reviewed, and results considered in the medical decision making process. - CT abd/pel w ct CT Interpretation Completed By: Radiologist - 1. SMALL AMOUNT OF FREE INTRAPERITONEAL GAS AND FREE INTRAPERITONEAL FLUID CONSISTENT WITH PERFORATION. 2. THERE IS MUCOSAL THICKENING AND ULCERATION OF THE DISTAL STOMACH AND PYLORUS. THE DIFFERENTIAL INCLUDES PEPTIC ULCER DISEASE, WELL ULCERATED MUCOSAL NEOPLASM. THIS IS LIKELY THE SITE OF PERFORATION GIVEN THE PRESENCE OF FREE AIR. - EKG 1110 EKG Interpretation: NSR 85 bpm, ST depressions lateral leads, RBBB, no STEMI Re-Evaluation - Re-Evaluation First Eval Re-Evaluation Time: 10:24 Comment: Imaging and lab results reviewed. Second Eval Re-Evaluation Time: 10:37 Comment: The pain has returned. She informs us that she takes aspirin daily, which could be a risk factor for PUD. Abdominal Pain Fem Course/Dx - Course Course Of Treatment: Patient is an 81 year-old female coming to [facility] for evaluation of abdominal pain. The patient informed us that she takes aspirin daily, which could be a risk factor for PUD. Patient was given IV fluids for hydration, morphine for pain, and zofran for nausea. She was also given Zosyn. Labs were reviewed. CT of the abd/pel shows findings as read by the radiologist. Patient care was discussed with Dr. Dash, who will take the patient to the OR. - Diagnoses Provider Diagnoses: acute surgical abdomen, Perforated viscus - Provider Notifications Discussed Care Of Patient With: Dr. Gamez (radiology) at 1015: CT abd/pel findings discussed. Dr. Dash (surgery) at 1035: has been made aware, he will take the patient to the OR. - Critical Care Time Critical Care Time: 30-74 min - 45 minutes Discharge - Discharge Plan Condition: Stable Disposition: ADMITTED TO [facility] Referrals: Riri Reynolds MD [Primary Care Provider] - The documentation as recorded by the Chilo mistry Billy accurately reflects the service I personally performed and the decisions made by , Armando Pedersen MD.
[2017-03-20] MEDS: D5W 1/2 NS KCl 20 Meq 1000 ML* 1,000 ML IV SCH (21:48)
[2017-03-21] MEDS: Piperac/Tazob 3.375 gm in NS* 3.375 GM/100 ML BAG IVPB SCH ×4 (05:31→22:42)
[2017-03-21] MEDS: Heparin VIAL(*) 5000 UNITS/ML VIAL (FIVE THOUSAND) SUBCUT SCH ×3 (05:32→22:42)
[2017-03-21] MEDS: Pantoprazole IV* 40 MG IV SCH ×2 (08:57→22:42)
[2017-03-21] MEDS: PTO: Brinzolamid/Brimonidin OPH(NF) 1 DROP BTL BOTH EYES SCH (08:57)
--- NOTE | 2017-03-21 09:42 | PN ---
Progress Note - Progress Note SOAP: Subjective: Reports no pain/N/V. Frequent BMs with formed and loose stools. Tolerating clears. Good appetite. Would like to walk more. She thinks she may be able to go home if she walks more. She is not taking any pain medication. Objective: Vital Signs Temp 97.6 F 03/21/17 07:22 Pulse 80 03/21/17 07:22 Resp 18 03/21/17 08:00 BP 158/72 03/21/17 07:22 Pulse Ox 100 03/21/17 07:22 Intake & Output 03/20/17 03/21/17 03/21/17 18:59 06:59 18:59 Intake Total 480 3123 Output Total 745 540 200 Balance -265 2583 -200 Intake: IV Fluids 1956 D5W 1/2 NS 20 meq KCL 1956 IVPB 431 ABX - ZOSYN 105 D5W 1/2 NS 20 meq KCL 326 Oral 480 735 Output: FREDRICK #1 45 40 Urine 600 500 200 Liquid Stool 100 Other: Date of Last Bowel 03/20/17 03/21/17 Movement # Bowel Movements 1 1 1 Estimated Stool Amount Small Small Large Well appearing. Abd: ND, soft, NT, incis c/d/i, no erythema; FREDRICK intact with SS drainage. Ext: warm, no c/c/e. Assessment: POD#3-4 s/p lap repair perf /omental patch. Doing remarkably well. Plan: Adv diet as tolerated. Resume po meds (no NSAIDs). HLIV. Increase activity in hopes she can be d/c'd home. Cont PPI/abx IV for now. Await H. pylori testing.
[2017-03-21] MEDS: Enalapril TAB* 5 MG PO SCH (10:03)
--- NOTE | 2017-03-21 13:55 | PN ---
Subjective Date of Service: 03/21/17 Interval History: Ms. Santos endorses no acute complaints, stating "I feel well." She is tolerating clear liquids well and reports only occasional "twinges of pain" to her right abdomen. Denies CP, SOB, n/v. Family History: Unchanged from Admission Social History: Unchanged from Admission Past Medical History: Unchanged from Admission Objective Active Medications: Brinzolamide/Brimonidine Tartrate (Simbrinza Oph.Susp(Nf)) 1 drop BOTH EYES QAM [facility] Last Admin: 03/21/17 08:57 Dose: 1 drop Enalapril Maleate (Vasotec Tab*) 2.5 mg PO DAILY [facility] Last Admin: 03/21/17 10:03 Dose: 2.5 mg Heparin Sodium (Porcine) (Heparin Vial(*)) 5,000 units SUBCUT Q8HR [facility] Last Admin: 03/21/17 05:32 Dose: 5,000 units Hydralazine HCl (Apresoline Iv*) 10 mg IV SLOW PU Q4H PRN PRN Reason: SYSTOLIC BP OVER 175 MMHG Last Admin: 03/20/17 16:23 Dose: 10 mg Hydromorphone HCl (Dilaudid Iv*) 0.5 mg IV Q1H PRN PRN Reason: PAIN - SEVERE Last Admin: 03/18/17 22:14 Dose: 0.5 mg Piperacillin Sod/Tazobactam Sod (Zosyn 3.375 Gm In Ns Premix*) 3.375 gm in 100 mls @ 200 mls/hr IVPB Q6H [facility] Last Admin: 03/21/17 10:41 Dose: 200 mls/hr Ondansetron HCl (Zofran Inj*) 4 mg IV Q4H PRN PRN Reason: NAUSEA/VOMITING Pantoprazole Sodium (Protonix Iv*) 40 mg IV Q12H [facility] Last Admin: 03/21/17 08:57 Dose: 40 mg Vital Signs 03/20/17 03/20/17 03/20/17 16:14 19:39 20:09 Temperature 98.6 F 97.8 F Pulse Rate 82 87 Respiratory 17 16 16 Rate Blood Pressure 175/73 146/58 (mmHg) O2 Sat by Pulse 100 99 Oximetry 03/20/17 03/21/17 03/21/17 23:17 03:20 07:22 Temperature 98.0 F 98.3 F 97.6 F Pulse Rate 81 91 80 Respiratory 18 16 18 Rate Blood Pressure 146/58 167/64 158/72 (mmHg) O2 Sat by Pulse 98 99 100 Oximetry 03/21/17 03/21/17 08:00 12:08 Temperature 97.7 F Pulse Rate 63 Respiratory 18 18 Rate Blood Pressure 148/56 (mmHg) O2 Sat by Pulse 99 Oximetry Oxygen Devices in Use Now: None Appearance: Well appearing female, sitting up in bed, NAD Ears/Nose/Mouth/Throat: Mucous Membranes Moist Neck: NL Appearance and Movements; NL JVP Respiratory: Symmetrical Chest Expansion and Respiratory Effort, Clear to Auscultation Cardiovascular: NL Sounds; No Murmurs; No JVD, RRR Abdominal: NL Sounds; No Tenderness; No Distention - abd soft, incision c/d/i with FREDRICK drain Extremities: No Edema Neurological: Alert and Oriented x 3 Lines/Tubes/Other Access: Clean, Dry and Intact Peripheral IV Nutrition: Taking PO's Result Diagrams: 03/19/17 04:10 03/18/17 04:28 Diagnostic Imaging: EKG - sinus RBBB Assess/Plan/Problems-Billing Assessment: This is an 81 yo female with HTN, HLD, glaucoma, and h/o coarctation of the aorta s/p repair who presented with a perforated gastric ulcer who is now s/p repair. Hospitalist group has been asked to consult for medical co-management. - Patient Problems (1) Perforated gastric ulcer Code(s): K25.5 - CHRONIC OR UNSPECIFIED GASTRIC ULCER WITH PERFORATION Comment : POD #4 s/p laproscopic repair Management per surgery NGT discontinued, FREDRICK drain in place Tolerating clear liquids Cont Zosyn (2) MUNIRA (acute kidney injury) Code(s): N17.9 - ACUTE KIDNEY FAILURE, UNSPECIFIED Comment: Resolved Secondary to hypovolemia (3) HTN (hypertension) Code(s): I10 - ESSENTIAL (PRIMARY) HYPERTENSION Comment: Mildly hypertensive Continue enalapril and prn hydralazine (4) RBBB Code(s): I45.10 - UNSPECIFIED RIGHT BUNDLE-BRANCH BLOCK SNOMED Code(s): 67010445 Comment: Non-specific ST seg changes on EKG remain unchanged No cardiac complaints No need for further evaluation or work up at this time (5) HLD (hyperlipidemia) Code(s): E78.5 - HYPERLIPIDEMIA, UNSPECIFIED Comment: Resume statin when able to take PO. (6) Glaucoma Code(s): H40.9 - UNSPECIFIED GLAUCOMA Comment: Continue home Simbrinza gtt. (7) History of aortic coarctation repair (8) DVT prophylaxis Code(s): HOQ1539 - Comment: Heparin SQ per surgery (9) Full code status Code(s): Z78.9 - OTHER SPECIFIED HEALTH STATUS Status and Disposition: Disposition per surgery. Hospitalists will continue to follow along.
[2017-03-22] MEDS: hydrALAZINE IV* 20 MG/ML VIAL IV SLOW PU PRN ×2 (00:06→23:47)
[2017-03-22] MEDS: Piperac/Tazob 3.375 gm in NS* 3.375 GM/100 ML BAG IVPB SCH ×4 (05:25→22:43)
[2017-03-22] MEDS: Heparin VIAL(*) 5000 UNITS/ML VIAL (FIVE THOUSAND) SUBCUT SCH ×3 (05:28→22:43)
[2017-03-22] MEDS: Pantoprazole IV* 40 MG IV SCH ×2 (09:24→22:43)
[2017-03-22] MEDS: Enalapril TAB* 5 MG PO SCH (09:24)
[2017-03-22] MEDS: PTO: Brinzolamid/Brimonidin OPH(NF) 1 DROP BTL BOTH EYES SCH (09:24)
[2017-03-22] MEDS ORDERED: Acetaminophen TAB* 325 MG PO PRN (10:03)
--- NOTE | 2017-03-22 10:12 | PN ---
Progress Note - Progress Note SOAP: Subjective: Not feeling as well. Has some abdominal discomfort. Didn't like breakfast but would take Ensure shakes. Objective: Vital Signs Temp 98.1 F 03/22/17 07:39 Pulse 86 03/22/17 07:39 Resp 18 03/22/17 07:39 BP 155/68 03/22/17 07:39 Pulse Ox 100 03/22/17 07:23 NAD Abd: soft, ND, NT, incis c/d/i no erythema; FREDRICK serous. Intake & Output 03/21/17 03/22/17 03/22/17 18:59 06:59 18:59 Intake Total 944 710 420 Output Total 475 895 450 Balance 469 -185 -30 Intake: IV Fluids 314 60 ABX - ZOSYN 110 D5W 1/2 NS 20 meq KCL 184 NS 20 60 IVPB 105 210 ABX - ZOSYN 105 210 Oral 525 440 420 Output: FREDRICK #1 75 20 Urine 400 875 450 Other: Date of Last Bowel 03/21/17 03/22/17 Movement # Bowel Movements 1 1 Estimated Stool Amount Small Small Small # Voids 1 Laboratory Results - last 24 hr 03/20/17 07:20 Stool H. pylori Ag Negative Assessment: POD#4-5 s/p lap repair of perf . Doing well. Plan: Ensure TID if not eating. Cont PPI. D/c Zosyn. Keep FREDRICK until D/C. Poss d/c in am if feeling better.
--- NOTE | 2017-03-22 11:19 | PN ---
Subjective Date of Service: 03/22/17 Interval History: Patient with non-specific complaints. She states that as the day progressed, she just felt worse and more uncomfortable but had difficulty describing her discomfort. She feels better today. Still reporting some abdominal discomfort. Denies fever/chills, CP, SOB. Family History: Unchanged from Admission Social History: Unchanged from Admission Past Medical History: Unchanged from Admission Objective Active Medications: Acetaminophen (Tylenol Tab*) 650 mg PO Q4H PRN PRN Reason: PAIN - MILD TO MODERATE Last Admin: 03/22/17 10:34 Dose: 650 mg Brinzolamide/Brimonidine Tartrate (Simbrinza Oph.Susp(Nf)) 1 drop BOTH EYES QAM [facility] Last Admin: 03/22/17 09:24 Dose: 1 drop Enalapril Maleate (Vasotec Tab*) 2.5 mg PO DAILY [facility] Last Admin: 03/22/17 09:24 Dose: 2.5 mg Heparin Sodium (Porcine) (Heparin Vial(*)) 5,000 units SUBCUT Q8HR [facility] Last Admin: 03/22/17 05:28 Dose: 5,000 units Hydralazine HCl (Apresoline Iv*) 10 mg IV SLOW PU Q4H PRN PRN Reason: SYSTOLIC BP OVER 175 [facility] Last Admin: 03/22/17 00:06 Dose: 10 mg Hydromorphone HCl (Dilaudid Iv*) 0.5 mg IV Q1H PRN PRN Reason: PAIN - SEVERE Last Admin: 03/18/17 22:14 Dose: 0.5 mg Piperacillin Sod/Tazobactam Sod (Zosyn 3.375 Gm In Ns Premix*) 3.375 gm in 100 mls @ 200 mls/hr IVPB Q6H [facility] Last Admin: 03/22/17 05:25 Dose: 200 mls/hr Ondansetron HCl (Zofran Inj*) 4 mg IV Q4H PRN PRN Reason: NAUSEA/VOMITING Pantoprazole Sodium (Protonix Iv*) 40 mg IV Q12H [facility] Last Admin: 03/22/17 09:24 Dose: 40 mg Vital Signs 03/21/17 03/21/17 03/21/17 12:08 15:59 16:04 Temperature 97.7 F 97.9 F Pulse Rate 63 72 Respiratory 18 16 Rate Blood Pressure 148/56 152/55 (mmHg) O2 Sat by Pulse 99 99 99 Oximetry 03/21/17 03/21/17 03/21/17 19:56 20:00 23:51 Temperature 98.3 F 97.5 F Pulse Rate 74 73 Respiratory 16 16 16 Rate Blood Pressure 145/64 183/68 (mmHg) O2 Sat by Pulse 99 100 Oximetry 03/22/17 03/22/17 03/22/17 03:16 07:23 07:39 Temperature 98.2 F 98.1 F 98.1 F Pulse Rate 95 86 86 Respiratory 18 18 18 Rate Blood Pressure 152/63 155/68 (mmHg) O2 Sat by Pulse 98 100 Oximetry 03/22/17 08:00 Temperature Pulse Rate Respiratory 18 Rate Blood Pressure (mmHg) O2 Sat by Pulse Oximetry Oxygen Devices in Use Now: None Appearance: Pleasant, older female patient, NAD Eyes: PERRLA Ears/Nose/Mouth/Throat: Mucous Membranes Moist Neck: NL Appearance and Movements; NL JVP Respiratory: Symmetrical Chest Expansion and Respiratory Effort, Clear to Auscultation Cardiovascular: RRR - grade 3/6 systolic murmur Abdominal: - - abd soft, non distended, incision c/d/i, FREDRICK with serous drainage Extremities: No Edema Neurological: Alert and Oriented x 3, NL Gait, NL Muscle Strength and Tone Lines/Tubes/Other Access: Clean, Dry and Intact Peripheral IV Nutrition: Taking PO's Result Diagrams: 03/19/17 04:10 03/18/17 04:28 Diagnostic Imaging: EKG - sinus RBBB Assess/Plan/Problems-Billing Assessment: This is an 81 yo female with HTN, HLD, glaucoma, and h/o coarctation of the aorta s/p repair who presented with a perforated gastric ulcer who is now s/p repair. Hospitalist group has been asked to consult for medical co-management. - Patient Problems (1) Perforated gastric ulcer Code(s): K25.5 - CHRONIC OR UNSPECIFIED GASTRIC ULCER WITH PERFORATION Comment : POD #5 s/p laproscopic repair Management per surgery FREDRICK drain in place Zosyn stopped by surgery (2) MUNIRA (acute kidney injury) Code(s): N17.9 - ACUTE KIDNEY FAILURE, UNSPECIFIED Comment: Resolved Secondary to hypovolemia (3) HTN (hypertension) Code(s): I10 - ESSENTIAL (PRIMARY) HYPERTENSION Comment: Mildly hypertensive, suspect in part secondary to pain Patient reports that she has been on the same dose of enalapril for years with good BP control. Continue enalapril and prn hydralazine. Pain management (4) RBBB Code(s): I45.10 - UNSPECIFIED RIGHT BUNDLE-BRANCH BLOCK SNOMED Code(s): 74123742 Comment: Non-specific ST seg changes on EKG remain unchanged No cardiac complaints No need for further evaluation or work up at this time (5) HLD (hyperlipidemia) Code(s): E78.5 - HYPERLIPIDEMIA, UNSPECIFIED Comment: Resume statin when able to take PO. (6) Glaucoma Code(s): H40.9 - UNSPECIFIED GLAUCOMA Comment: Continue home Simbrinza gtt. (7) History of aortic coarctation repair (8) DVT prophylaxis Code(s): [id number] - Comment: Heparin SQ per surgery (9) Full code status Code(s): Z78.9 - OTHER SPECIFIED HEALTH STATUS Status and Disposition: Disposition per surgery. Hospitalists will continue to follow along.
[2017-03-23] MEDS: Piperac/Tazob 3.375 gm in NS* 3.375 GM/100 ML BAG IVPB SCH (04:34)
[2017-03-23] MEDS: Heparin VIAL(*) 5000 UNITS/ML VIAL (FIVE THOUSAND) SUBCUT SCH (05:14)
[2017-03-23 08:15] VITALS: BP 169/66
[2017-03-23] MEDS: Enalapril TAB* 5 MG PO SCH (08:38)
[2017-03-23] MEDS: Pantoprazole IV* 40 MG IV SCH (08:40)
[2017-03-23] MEDS: PTO: Brinzolamid/Brimonidin OPH(NF) 1 DROP BTL BOTH EYES SCH (08:40)
--- NOTE | 2017-03-23 09:34 | PN ---
Progress Note - Progress Note SOAP: Subjective: Doing well, no complaints, ready to go home. Tolerating regular diet, moving her bowels regularly. Objective: Awake and alert, comfortable in bed. VSS, afebrile Abdomen soft, NT, ND. Incisions C/D/I. J-vac with 20 cc serous output. I/O reviewed Assessment: Doing well, s/p laparoscopic Star's patch repair or perforated gastric ulcer Plan: D/C to home today on PPI. Will keep FREDRICK drain until seen in office next week for a F/U. She has done very well post-operatively.
--- NOTE | 2017-03-23 10:41 | PN ---
Subjective Date of Service: 03/23/17 Interval History: Patient does not endorse any complaints, states, "I'm feeling good" and is happy to be going home. No acute concerns. Family History: Unchanged from Admission Social History: Unchanged from Admission Past Medical History: Unchanged from Admission Objective Active Medications: Acetaminophen (Tylenol Tab*) 650 mg PO Q4H PRN PRN Reason: PAIN - MILD TO MODERATE Last Admin: 03/22/17 10:34 Dose: 650 mg Brinzolamide/Brimonidine Tartrate (Simbrinza Oph.Susp(Nf)) 1 drop BOTH EYES QAM [facility] Last Admin: 03/23/17 08:40 Dose: 1 drop Enalapril Maleate (Vasotec Tab*) 2.5 mg PO DAILY [facility] Last Admin: 03/23/17 08:38 Dose: 2.5 mg Heparin Sodium (Porcine) (Heparin Vial(*)) 5,000 units SUBCUT Q8HR [facility] Last Admin: 03/23/17 05:14 Dose: 5,000 units Hydralazine HCl (Apresoline Iv*) 10 mg IV SLOW PU Q4H PRN PRN Reason: SYSTOLIC BP OVER 175 [facility] Last Admin: 03/22/17 23:47 Dose: 10 mg Hydromorphone HCl (Dilaudid Iv*) 0.5 mg IV Q1H PRN PRN Reason: PAIN - SEVERE Last Admin: 03/18/17 22:14 Dose: 0.5 mg Piperacillin Sod/Tazobactam Sod (Zosyn 3.375 Gm In Ns Premix*) 3.375 gm in 100 mls @ 200 mls/hr IVPB Q6H [facility] Last Admin: 03/23/17 04:34 Dose: 200 mls/hr Ondansetron HCl (Zofran Inj*) 4 mg IV Q4H PRN PRN Reason: NAUSEA/VOMITING Pantoprazole Sodium (Protonix Iv*) 40 mg IV Q12H [facility] Last Admin: 03/23/17 08:40 Dose: 40 mg Vital Signs 03/22/17 03/22/17 03/22/17 11:48 13:51 15:48 Temperature 97.8 F 97.9 F Pulse Rate 71 76 Respiratory 16 18 Rate Blood Pressure 132/49 145/48 (mmHg) O2 Sat by Pulse 98 98 99 Oximetry 03/22/17 03/22/17 03/22/17 19:27 20:54 23:25 Temperature 98.1 F 97.8 F Pulse Rate 73 76 Respiratory 16 16 16 Rate Blood Pressure 162/61 180/63 (mmHg) O2 Sat by Pulse 100 100 Oximetry 03/23/17 03/23/17 03/23/17 03:29 07:57 08:00 Temperature 98.3 F 98.0 F Pulse Rate 85 80 Respiratory 16 16 16 Rate Blood Pressure 158/76 169/66 (mmHg) O2 Sat by Pulse 99 99 Oximetry Oxygen Devices in Use Now: None Appearance: Well appearing, elderly female, ambulating in room, NAD Eyes: PERRLA Ears/Nose/Mouth/Throat: Mucous Membranes Moist Respiratory: Symmetrical Chest Expansion and Respiratory Effort, Clear to Auscultation Cardiovascular: NL Sounds; No Murmurs; No JVD, RRR Abdominal: NL Sounds; No Tenderness; No Distention, - - FREDRICK drain with serous drainage Neurological: Alert and Oriented x 3, NL Gait Result Diagrams: 03/19/17 04:10 03/18/17 04:28 Diagnostic Imaging: EKG - sinus RBBB Assess/Plan/Problems-Billing Assessment: This is an 81 yo female with HTN, HLD, glaucoma, and h/o coarctation of the aorta s/p repair who presented with a perforated gastric ulcer who is now s/p repair. Hospitalist group has been asked to consult for medical co-management. - Patient Problems (1) Perforated gastric ulcer Code(s): K25.5 - CHRONIC OR UNSPECIFIED GASTRIC ULCER WITH PERFORATION Comment : POD #6 s/p laproscopic repair Management per surgery FREDRICK drain in place Outpatient f/u with surgery (2) MUNIRA (acute kidney injury) Code(s): N17.9 - ACUTE KIDNEY FAILURE, UNSPECIFIED Comment: Resolved Secondary to hypovolemia (3) HTN (hypertension) Code(s): I10 - ESSENTIAL (PRIMARY) HYPERTENSION Comment: Mildly hypertensive, suspect in part secondary to pain. Improving. Patient reports that she has been on the same dose of enalapril for years with good BP control. Continue enalapril at current dose. Patient advised to f/u with PCP in 1-2 weeks to determine if further medication titration is required. Pain management (4) RBBB Code(s): I45.10 - UNSPECIFIED RIGHT BUNDLE-BRANCH BLOCK SNOMED Code(s): 57291762 Comment: Non-specific ST seg changes on EKG remain unchanged No cardiac complaints No need for further evaluation or work up at this time (5) HLD (hyperlipidemia) Code(s): E78.5 - HYPERLIPIDEMIA, UNSPECIFIED Comment: Resume statin when able to take PO. (6) Glaucoma Code(s): H40.9 - UNSPECIFIED GLAUCOMA Comment: Continue home Simbrinza gtt. (7) History of aortic coarctation repair (8) DVT prophylaxis Code(s): [id number] - Comment: Heparin SQ per surgery (9) Full code status Code(s): Z78.9 - OTHER SPECIFIED HEALTH STATUS Status and Disposition: Disposition per surgery. Hospitalists will continue to follow along. Plan for d /c home today.
--- NOTE | 2017-03-24 11:06 | DS ---
DISCHARGE SUMMARY: DATE OF ADMISSION: 03/17/17 DATE OF DISCHARGE: 03/23/17 ADMISSION DIAGNOSES: 1. Abdominal pain. 2. Perforated viscus. DISCHARGE DIAGNOSES: 1. Abdominal pain. 2. Perforated viscus. 3. Perforated ulcer of the distal stomach. 4. Anemia of blood loss. ADMITTING PHYSICIAN: Arnie Dash MD (DICTATED BY JERMAINE MENCHACA) CONSULTATION: Francis Buck NP, for hospitalist consultation on 03/17/17. PROCEDURES: Diagnostic laparoscopy with repair of a perforated gastric ulcer using Star's patch on 03/17/17. HISTORY OF PRESENT ILLNESS: Mrs. Santos is a pleasant 81-year-old female who presented to the emergency room on 03/17/17 with complaints of 3 to 4 days history of progressing, worsening abdominal pain. The patient is actually very healthy, considering her age despite her past medical history of hypertension, hyperlipidemia, and osteoporosis. She also had history of coarctation of the aorta that was repaired in [facility] back in her 50s. She presented to the emergency room with complaints of worsening nausea and abdominal pain for the past 3 to 4 days that has suddenly got worse. She also noted that her abdomen was a little bit distended earlier today. Also, she continued to have normal bowel movements and denied any changes in her bowel habits or vomiting. She called her friend and she presented to the emergency room and she had initial workup that revealed mild leukocytosis. However, CT scan of the abdomen and pelvis was significant for free air, mostly localized to the pyloric area, which is consistent with a perforated peptic ulcer. The patient denies any history of aspirin intake; however, she has been recently taking Mobic for arthritic aches and pains in her hands. She denies any history of peptic ulcer disease or similar complaints in the past. Given her ongoing symptoms, the patient was admitted by the surgical services and a hospitalist consultation was obtained preoperatively to evaluate given her age and past medical history. She had an EKG preoperatively that appeared to be abnormal; however, in comparison, the patient seemed to have chronic ST depressions on the lateral leads. We discussed with her proceeding with surgery given her ongoing symptoms and the findings of the CT scan that was consistent with perforated viscus. After discussing rationale, indication, risks, and benefits of surgery , the patient consented to go forward. HOSPITAL COURSE: The patient was admitted by the surgical services on 03/17/17 in anticipation for surgery. Hospitalist evaluation and clearance was obtained on the same day. The patient was taken to the operating room in the evening hours on 03/17/17 where she underwent a diagnostic laparoscopy and was found to have a large perforated ulcer in the antrum of her stomach. During the operative time, there was no evidence of major bowel content spillage within the abdomen. The ulcer was repaired by Dr. Dash using laparoscopic technique. Please refer to the operative note for further details. After surgery, the patient was returned to the recovery room in a stable condition. She did extremely well with only mild incisional discomfort that was well tolerated using pain medicine as needed. On the first day postoperatively, the patient was ambulatory out of bed. Her white count has normalized. Also, recheck of her H and H revealed values of 8.9 and 27 respectively. That was likely hemodilutional in nature since her blood loss during surgery was very minimal. She continues to do well and reports no pain on the first day postoperatively. She felt good and NG tube was placed in her stomach during surgery and was maintained to suction. The patient was covered prophylactically with antibiotics and was also given Protonix twice daily for GI prophylaxis. The patient continued to do well; however, H. pylori testing was still on hold until the time of discharge. Her Crespo catheter was discontinued on the second day postoperatively and she continues to do well. On the third day postoperatively, the patient was taken to the radiology suite and she had an upper GI that revealed no evidence of obstruction or extravasations of the Gastrografin for which an NG tube was discontinued and the patient was started immediately on clear liquid diet. She continued to improve day by day and she was ambulatory out of bed. She tolerated her clear liquid diet well that was advanced to full liquid and then regular diet on discharge day. She continued to improve and her pain was essentially unremarkable. On discharge morning, she was ready to go home. Her CP was emptied and revealed about 20 to 30 cc of serous output for which decision was made for the drain to stay with her until seen in the office next week for a followup. All her discharge instructions were given both verbally and written format. She was also given a script for some Percocet to use as needed and we will maintain her on Prilosec as a proton pump inhibitor to take for the next 30 days. She was also advised to resume all her regular medication and to avoid any aspirin or aspirin-related products at least for the next month. The patient will be seen in the office next week for a followup and advised to call the office if she had any questions prior to that. DISCHARGE MEDICATIONS: Her discharge medications include: 1. Fosamax 70 mg p.o. q. week. 2. Vitamin C 250 mg p.o. daily. 3. Lipitor 5 mg q.h.s. 4. Brinzolamide eye drops, 1 drop in both eyes daily. 5. Vasotec 2.5 mg p.o. daily. 6. Metronidazole topical cream use as needed. 7. Prilosec 20 mg p.o. daily. 8. Percocet ____/325 one q.4 hours p.r.n. for pain. PROBLEM LIST: Perforated viscus, status post diagnostic laparoscopy with laparoscopic repair of perforated peptic ulcer with Star's patch. [facility] JERMAINE CHASE CC: Dr. Reynolds; Francis Buck NP* [id number]/[facility] #: [id number] ANJANA
== END 2017-03-23 11:15 | disposition home or self-care (01) | DRG 327 ==
LOC: ED 06:27 → SSU 11:20
PROVIDERS: ADMIT Surgery; ATTEND Surgery
PROC: 0DN84ZZ Release Small Intestine, Percutaneous Endoscopic Approach (ICD-10-PCS; 2017-03-17)
PROC: 0DQ74ZZ Repair Stomach, Pylorus, Percutaneous Endoscopic Approach (ICD-10-PCS; principal; 2017-03-17 15:45)
DX: K25.1 Acute gastric ulcer with perforation (principal); D62 Acute posthemorrhagic anemia; N17.9 Acute kidney failure, unspecified; I10 Essential (primary) hypertension; E78.5 Hyperlipidemia, unspecified; M81.0 Age-related osteoporosis without current pathological fracture; L71.9 Rosacea, unspecified; G43.909 Migraine, unspecified, not intractable, without status migrainosus; I45.10 Unspecified right bundle-branch block; H40.9 Unspecified glaucoma; K66.0 Peritoneal adhesions (postprocedural) (postinfection); Z95.2 Presence of prosthetic heart valve; Z79.899 Other long term (current) drug therapy; Z82.49 Family history of ischemic heart disease and other diseases of the circulatory system
CPT/HCPCS: 36415; 74177; 74246; 80048; 80053; 81003; 81015; 83605; 83690; 85025; 85610; 87338; 93005; 94760; A9270-GY; J0360; J1170; J1644; J2270; J2405; J2543; J2704; J3010; Q9967

== ENCOUNTER 2019-12-23 10:51 | Inpatient (IN) | payer MEDICARE, BC ==
[2019-12-23 11:38] LABS: ABS Basophils 0.1 10^3/ul (0-0.2); ABS Lymphocytes 0.7 10^3/ul (1.0-4.8); ABS Monocytes 0.5 10^3/ul (0-0.8); ABS Neutrophils 10.4 10^3/ul (1.5-7.7); Eosinophil % 0.2 %; Hematocrit 40 % (35-47); Hemoglobin 13.4 g/dL (12.0-16.0); Lymphocyte % 6.1 %; Mean Corpuscular HGB Conc 33 g/dL (31-36); Mean Corpuscular Hemoglobin 29 pg (27-31); Mean Corpuscular Volume 88 fL (80-97); Mean Platelet Volume 8.1 fL (7.4-10.4); Platelet Count 248 10^3/uL (150-450); Red Blood Count 4.59 10^6 /uL (3.70-4.87); Red Cell Distribution Width 14 % (10-15); White Blood Count 11.7 10^3/uL (3.5-10.8)
[2019-12-23 11:57] LABS: Troponin I 0.01 ng/mL (<0.03)
[2019-12-23 12:24] LABS: Albumin 3.9 g/dL (3.2-5.2); Albumin/Globulin Ratio 1.5 (1-3); BUN/Creatinine Ratio 31.5 (8-20); Calcium 9.2 mg/dL (8.6-10.3); EGFR African American 91.5 (>60); EGFR Non-African American 75.6 (>60); Globulin 2.6 g/dL (2-4); Magnesium 2.1 mg/dL (1.9-2.7); Potassium 3.4 mmol/L (3.5-5.0); Total Bilirubin 0.6 mg/dL (0.2-1.0); Total Protein 6.5 g/dL (6.4-8.9)
[2019-12-23 12:33] LABS: TSH (Thyroid Stimulating Horm) 4.7 mcIU/mL (0.34-5.60)
[2019-12-23] MEDS ORDERED: NS 0.9% 500 ML* 500 ML IV ONE (12:57)
[2019-12-23] MEDS ORDERED: Atropine SYRINGE* 0.1 MG/ML 10 ML SYRINGE (1 MG) IV PUSH ONE (12:58)
--- NOTE | 2019-12-23 13:01 | ED ---
Syncope/Near Syncope - HPI Summary HPI Summary: Patient is a 84 y/o F presenting to [facility] with chief complaint of a near syncopal episode earlier today, 12/23/19. This morning, patient had gone to her research attorney's office. Friend reports that the patient was at her baseline this morning, capable of ambulating with a steady gait and conversing at baseline. When they were in the waiting room of the office, the friend states that the patient appeared "out of it" and was not as talkative as usual. Groundman/Lineman came to get them, patient appeared to have an abnormal, shuffling gait. Friend states that the patient appeared to be starting to fall to the ground, friend grabbed the patient. Friend states that the patient was capable of responding to others but still appeared "out of it". This persisted for 5-10 minutes and patient returned to her baseline. EMS was called. Patient notes that she felt fatigued at the time but this has since resolved. While doing examination in room, patient's HR dropped to 20s-40s BPM. However, before medications were administered, patient's HR spontaneously improved to 60s. Patient notes that she is on amlodipine and had this recently decreased from 10 mg to 5 mg. She believes she took this medicine around 0730/0800. She is also on donepezil. Patient does not have a pacemaker. Pt does not report any fever, chills, erythema of eyes, sore throat, CP, SOB, cough, abdominal pain, N/V, dysuria, hematuria, myalgia, edema, rash. On triage, pain is rated 0/10 in severity. On deputy sheriff court services, nothing is noted to aggravate/alleviate Sx. Home medications and allergies are reviewed. - History Of Current Complaint Chief Complaint: EDSyncope Time Seen by Provider: 12/23/19 10:57 Hx Obtained From: Patient Onset/Duration: Resolved Timing: Intermittent Episode Lasting Context: Witnessed Activity At Onset: Other - ambulating Associated Head Trauma: No Aggravating Factor(s): Nothing Alleviating Factor(s): Nothing Associated Signs And Symptoms: Other - positive - fatigue; negative - fever, chills, erythema of eyes, sore throat, CP, SOB, cough, abdominal pain, N/V, dysuria, hematuria, myalgia, edema, rash - Allergies/Home Medications Allergies/Adverse Reactions: Allergies Allergy/AdvReac Type Severity Reaction Status Date / Time No Known Allergies Allergy Verified 12/23/19 11:09 Home Medications: Home Medications Amlodipine Besylate [Norvasc] 5 mg PO DAILY 12/23/19 [History Confirmed 12/23/19 ] Brinzolamid/Brimonidin OPH(NF) [Simbrinza OPH.SUSP(NF)] 1 drop BOTH EYES BID [History Confirmed 12/23/19] Donepezil TAB* [Aricept 5 MG TAB*] 5 mg PO DAILY 12/23/19 [History Confirmed ] Timolol Maleate 1 drop BOTH EYES BID 12/23/19 [History Confirmed 12/23/19] PMH/Surg Hx/FS Hx/Imm Hx Endocrine/Hematology History: Reports: Hx Anemia - INTO HER 20'S- NO PROBLEMS NOW Denies: Hx Diabetes, Hx Thyroid Disease Cardiovascular History: Reports: Hx Hypercholesterolemia, Hx Hypertension - On meds, Hx Valvular Heart Disease Denies: Hx Congestive Heart Failure, Hx Deep Vein Thrombosis, Hx Myocardial Infarction, Hx Pacemaker/ICD Respiratory History: Denies: Hx Asthma, Hx Chronic Obstructive Pulmonary Disease (COPD), Hx Lung Cancer, Hx Pneumonia, Hx Pulmonary Embolism GI History: Denies: Hx Gall Bladder Disease, Hx Gastrointestinal Bleed, Hx Ulcer, Hx Urosepsis History: Denies: Hx Kidney Stones, Hx Renal Disease Musculoskeletal History: Reports: Hx Arthritis - ALL OVER Sensory History: Reports: Hx Cataracts - BILATERAL, Hx Contacts or Glasses - GLASSES, Hx Glaucoma - BILATERAL Denies: Hx Hearing Aid Opthamlomology History: Reports: Hx Cataracts - BILATERAL, Hx Contacts or Glasses - GLASSES, Hx Glaucoma - BILATERAL Neurological History: Reports: Hx Migraine - HISTORY OF IN THE PAST Denies: Hx Dementia, Hx Seizures, Hx Transient Ischemic Attacks (TIA) Psychiatric History: Denies: Hx Anxiety, Hx Depression, Hx Panic Disorder, Hx Schizophrenia, Hx Bipolar Disorder - Surgical History Surgery Procedure, Year, and Place: 1940 TONSILS MS KNUCKLE REPLACED. 1947 LG MOLE BUT[place]OCK [place]. 1967 CARDIAC CATH [place]. 1970 D/C [facility] [place]. 1972 UTERINE TUMOR AND O CYST [facility] [place]. 1982 HYSTERECTOMY TUMOR [facility] [place]. 1991 CARDIAC CATH [place]. 1991 CONGENITAL AORTA REPAIR [facility]. 1994 ROTATOR CUFF REPAIR AND BONE SPUR [facility]. 1999 NEUROMA L FOOT [facility]. 2003 RIGHT BREAST CALCIUM DEPOSIT NOT MALIGNANT [facility]. 2010 R PHACO [facility]. 2017 PEPTIC ULCER Hx Anesthesia Reactions: No Infectious Disease History: No Infectious Disease History: Denies: History Other Infectious Disease, Traveled Outside the [place] in Last 30 Days - Family History Known Family History: Positive: Other Family History: Father with lung and prostate cancer. Mother with arthritis. - Social History Alcohol Use: None Alcohol Amount: 1 GLASS+ OF WINE 4 TIMES PER WEEK Substance Use Type: Reports: None Smoking Status (MU): Never Smoked Tobacco Review of Systems Positive: Fatigue. Negative: Fever, Chills Negative: Drainage Negative: Sore Throat Negative: Chest Pain Negative: Shortness Of Breath, Cough Negative: Abdominal Pain, Vomiting, Nausea Negative: dysuria, hematuria Negative: Myalgia, Edema Negative: Rash Neurological: Other - negative - dizziness Positive: Syncope - NEAR All Other Systems Reviewed And Are Negative: Yes Physical Exam - Summary Physical Exam Summary: Constitutional: Well-developed, Thin-Appearing, Alert. (-) Distressed Skin: Warm, Dry HENT: Normocephalic; Atraumatic Eyes: Conjunctiva normal Neck: Musculoskeletal ROM normal neck. (-) JVD, (-) Stridor, (-) Tracheal deviation Cardio: Rhythm regular, rate normal, Heart sounds normal; Intact distal pulses; The pedal pulses are 2+ and symmetric. Radial pulses are 2+ and symmetric. (-) Murmur Pulmonary/Chest wall: Effort normal. (-) Respiratory distress, (-) Wheezes, (-) Rales Abd: Soft, (-) tenderness, (-) Distension, (-) Guarding, (-) Rebound Musculoskeletal: (-) Edema Lymph: (-) Cervical adenopathy Neuro: Alert, Oriented x3, GCS 15. Psych: Mood and affect Normal Triage Information Reviewed: Yes Vital Signs On Initial Exam: Initial Vitals Temp Pulse Resp BP Pulse Ox 97.2 F 55 15 136/50 100 12/23/19 11:02 12/23/19 11:02 12/23/19 11:02 12/23/19 11:02 12/23/19 11:02 Vital Signs Reviewed: Yes - Genia Coma Scale Best Eye Response: 4 - Spontaneous Best Motor Response: 6 - Obeys Commands Best Verbal Response: 5 - Oriented Coma Scale Total: 15 Procedures - Sedation Patient Received Moderate/Deep Sedation with Procedure: No Diagnostics - Vital Signs Vital Signs Temp Pulse Resp BP Pulse Ox 12/23/19 12:06 54 15 136/58 100 12/23/19 12:00 52 14 100 12/23/19 11:58 99 12/23/19 11:36 53 20 145/64 98 12/23/19 11:06 54 15 135/63 100 12/23/19 11:02 97.2 F 55 15 136/50 100 - Laboratory Lab Results: Lab Results 12/23/19 12/23/19 12/23/19 Range/Units 11:30 11:30 11:30 WBC 11.7 H (3.5-10.8) 10^3/uL RBC 4.59 (3.70-4.87) 10^6 /uL Hgb 13.4 (12.0-16.0) g/dL Hct 40 (35-47) % MCV 88 (80-97) fL MCH 29 (27-31) pg MCHC 33 (31-36) g/dL RDW 14 (10-15) % Plt Count 248 (150-450) 10^3/uL MPV 8.1 (7.4-10.4) fL Neut % (Auto) 88.7 % Lymph % (Auto) 6.1 % [place] % (Auto) 4.5 % Eos % (Auto) 0.2 % Baso % (Auto) 0.5 % Absolute Neuts (auto) 10.4 H (1.5-7.7) 10^3/ul Absolute Lymphs (auto) 0.7 L (1.0-4.8) 10^3/ul Absolute Monos (auto) 0.5 (0-0.8) 10^3/ul Absolute Eos (auto) 0.0 (0-0.6) 10^3/ul Absolute Basos (auto) 0.1 (0-0.2) 10^3/ul Absolute Nucleated RBC 0.0 10^3/ul Nucleated RBC % 0.0 Sodium 143 (135-145) mmol/L Potassium 3.4 L (3.5-5.0) mmol/L Chloride 108 (101-111) mmol/L Carbon Dioxide 25 (22-32) mmol/L Anion Gap 10 (2-11) mmol/L BUN 23 (6-24) mg/dL Creatinine 0.73 (0.51-0.95) mg/dL Est GFR ( Amer) 91.5 (>60) Est GFR (Non-Af Amer) 75.6 (>60) BUN/Creatinine Ratio 31.5 H (8-20) Glucose 148 H (70-100) mg/dL Lactic Acid 1.9 (0.5-2.0) mmol/L Calcium 9.2 (8.6-10.3) mg/dL Magnesium 2.1 (1.9-2.7) mg/dL Total Bilirubin 0.60 (0.2-1.0) mg/dL AST 29 (13-39) U/L ALT 15 (7-52) U/L Alkaline Phosphatase 61 (34-104) U/L Troponin I 0.01 (<0.03) ng/mL Total Protein 6.5 (6.4-8.9) g/dL Albumin 3.9 (3.2-5.2) g/dL Globulin 2.6 (2-4) g/dL Albumin/Globulin Ratio 1.5 (1-3) TSH 4.70 (0.34-5.60) mcIU/mL Result Diagrams: 12/23/19 11:30 12/23/19 14:36 Lab Statement: Any lab studies that have been ordered have been reviewed, and results considered in the medical decision making process. - CT BRAIN CT CT Interpretation Completed By: Radiologist Summary of CT Findings: IMPRESSION: 1. No acute intracranial abnormality by CT. 2. Mild chronic small vessel ischemic disease is likely. THIS REPORT WAS REVIEWED BY ED PHYSICIAN. - EKG 1308 Cardiac Rate: Bradycardia - rate of 58 BPM EKG Rhythm: Sinus Bradycardia Summary of EKG Findings: EKG showed sinus bradycardia with rate of 58 BPM, biphasic T-waves V4-V6, TWI in V5, 1st degree AV block, no STEMI. ED physician has reviewed and interpreted this EKG. 1138 Cardiac Rate: Bradycardia - rate of 54 BPM EKG Rhythm: Sinus Bradycardia Summary of EKG Findings: EKG sinus bradycardia with rate of 54 BPM, biphasic T- waves V4-V6, TWI in V5, 1st degree AV block, no STEMI. ED physician has reviewed and interpreted this EKG. Course/Dx Course Of Treatment: Patient is a 84 y/o F presenting to [facility] with chief complaint of a near syncopal episode earlier today, 12/23/19. This morning, patient had gone to her research attorney's office. Friend reports that the patient was at her baseline this morning, capable of ambulating with a steady gait and conversing at baseline. When they were in the waiting room of the office, the friend states that the patient appeared "out of it" and was not as talkative as usual. Groundman/Lineman came to get them, patient appeared to have an abnormal, shuffling gait. Friend states that the patient appeared to be starting to fall to the ground, friend grabbed the patient. Friend states that the patient was capable of responding to others but still appeared "out of it". This persisted for 5-10 minutes and patient returned to her baseline. EMS was called. Patient notes that she felt fatigued at the time but this has since resolved. While doing examination in room, patient's HR dropped to 20s-40s BPM. However, before medications were administered, patient's HR spontaneously improved to 60s. Patient notes that she is on amlodipine and had this recently decreased from 10 mg to 5 mg. She believes she took this medicine around 0730/0800. She is also on donepezil. Patient does not have a pacemaker. EKG showed sinus bradycardia with rate of 58 BPM, biphasic T-waves V4-V6, TWI in V5, 1st degree AV block, no STEMI. Repeat EKG was similar. Bloodwork was obtained, abnormal values include WBC 11.7, absolute neuts 10.4, absolute lymphs 0.7, potassium 3.4, BUN/ creatinine ratio 31.5, glucose 148, BNP 101. During ED course, patient received fluids and Zofran 8 mg IV. Patient's case was discussed with Dr. Roberts, Dr. Roberts accepts for admission. - Diagnoses Provider Diagnoses: Symptomatic bradycardia, Near syncope - Physician Notifications Discussed Care of Patient With: Alfredo Roberts Time Discussed With Above Provider: 13:20 Instructed by Provider To: Other - Patient's case was discussed with Dr. Roberts , Dr. Roberts accepts for admission. Discharge ED - Sign-Out/Discharge Documenting (check all that apply): Patient Departure - admit All imaging exams completed and their final reports reviewed: Yes - Discharge Plan Condition: Fair Disposition: ADMITTED TO [facility] - Attestation Statements Document Initiated by Scribe: Yes Documenting Scribe: RADU MCLAUGHLIN Provider For Whom Scribe is Documenting (Include Credential): ELVIRA LYLE MD Scribe Attestation: I, RADU MCLAUGHLIN, scribed for ELVIRA LYLE MD on 12/23/19 at 2306. Status of Scribe Document: Ready
[2019-12-23] MEDS ORDERED: Ondansetron INJ* 2 MG/ML VIAL IV ONE (13:10)
--- NOTE | 2019-12-23 14:43 | HP ---
H&P (Free Text) History and Physical: DATE OF ADMISSION: 12/23/2019 REASON FOR ADMISSION: Symptomatic bradycardia ATTENDING PHYSICIAN: Dr Snider CHIEF COMPLAINT: Near syncope HPI: 84F presents on 12/23/19 after experiencing a near syncopal episode at her collections attorney's office. Most of the history is obtained by her friend at the bedside since patient is a poor historian and has some mild dementia. He states they were there to adjust some paperwork regarding HCP and living will. They were having a normal conversation in the waiting room, he looked over to her and she was staring blankly at the floor. When the collections attorney came out, she was able to ambulate but with a shuffling gait. She started to sink to the floor and was lowered into a chair. He states that she never lost consciousness. ED/floor Course: Upon arrival to ED, she had an episode of bradycardia into the 20's. This resolved spontaneously without atropine. No further episodes. ROS: ROS unable to be obtained secondary to patient being a poor historian and mild dementia. However, she does state that she feels fine and has no complaints. 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 Social History: Rarely drinks wine, denies tobacco or drug use. She lives at home alone but does have help around the house. No children. Allergies: NKA Home Medications: Amlodipine Besylate [Norvasc] 5 mg PO DAILY 12/23/19 [History Confirmed 12/23/19 ] Brinzolamid/Brimonidin OPH(NF) [Simbrinza OPH.SUSP(NF)] 1 drop BOTH EYES BID [History Confirmed 12/23/19] Donepezil TAB* [Aricept 5 MG TAB*] 5 mg PO DAILY 12/23/19 [History Confirmed ] Timolol Maleate 1 drop BOTH EYES BID 12/23/19 [History Confirmed 12/23/19] Tele: NSR HR in 60's, widened QRS Vitals: Vital Signs 12/23/19 12/23/19 12/23/19 11:02 11:06 11:36 Temperature 97.2 F Pulse Rate 55 54 53 Respiratory 15 15 20 Rate Blood Pressure 136/50 135/63 145/64 (mmHg) O2 Sat by Pulse 100 100 98 Oximetry 12/23/19 12/23/19 12/23/19 11:58 12:00 12:06 Temperature Pulse Rate 52 54 Respiratory 14 15 Rate Blood Pressure 136/58 (mmHg) O2 Sat by Pulse 99 100 100 Oximetry 12/23/19 12/23/19 12/23/19 12:36 13:00 13:06 Temperature Pulse Rate 51 76 59 Respiratory 16 17 18 Rate Blood Pressure 139/63 108/64 (mmHg) O2 Sat by Pulse 100 100 100 Oximetry 12/23/19 12/23/19 12/23/19 13:54 14:00 14:06 Temperature Pulse Rate 57 56 59 Respiratory 20 14 15 Rate Blood Pressure 131/58 125/62 (mmHg) O2 Sat by Pulse 100 98 100 Oximetry 12/23/19 12/23/19 12/23/19 14:36 15:00 15:07 Temperature Pulse Rate 62 61 63 Respiratory 21 17 15 Rate Blood Pressure 141/53 134/63 (mmHg) O2 Sat by Pulse 96 98 99 Oximetry 12/23/19 12/23/19 12/23/19 15:10 15:26 15:30 Temperature 97.7 F 98.7 F Pulse Rate 98 66 60 Respiratory 22 15 16 Rate Blood Pressure 134/63 137/61 126/44 (mmHg) O2 Sat by Pulse 100 100 100 Oximetry 12/23/19 15:31 Temperature Pulse Rate 60 Respiratory 15 Rate Blood Pressure 126/44 (mmHg) O2 Sat by Pulse 100 Oximetry O2: RA Infusions: None Current Medications: Brinzolamide/Brimonidine Tartrate (Simbrinza Oph.Susp(Nf)) 1 drop BOTH EYES BID HELEN Timolol Maleate (Timoptic 0.5% Opth*) 1 drop BOTH EYES BID HELEN Physical Exam: Constitutional: awake, alert, no distress, no diaphoresis, frail appearing Head: normocephalic, atraumatic Eyes: no pallor, no icterus ENT: moist mucous membranes Neck: soft, supple, no jvd, no stridor CVS: normal rate, regular, no murmur Chest/Resp: bilateral air entry, no rhales, no wheeze, no rhonchi, no acc muscle use Abdomen/GI: soft, nontender, nondistended, BS+ Ext/Msk: warm, pulses+, no edema Skin: intact, warm Neuro: awake, alert, orientedx1, moving all extremities, no gross focal deficit Psych: normal affect Labs: Laboratory Results - last 24 hr 12/23/19 12/23/19 12/23/19 11:30 11:30 11:30 WBC 11.7 H RBC 4.59 Hgb 13.4 Hct 40 MCV 88 MCH 29 MCHC 33 RDW 14 Plt Count 248 MPV 8.1 Neut % (Auto) 88.7 Lymph % (Auto) 6.1 [place] % (Auto) 4.5 Eos % (Auto) 0.2 Baso % (Auto) 0.5 Absolute Neuts (auto) 10.4 H Absolute Lymphs (auto) 0.7 L Absolute Monos (auto) 0.5 Absolute Eos (auto) 0.0 Absolute Basos (auto) 0.1 Absolute Nucleated RBC 0.0 Nucleated RBC % 0.0 Sodium 143 Potassium 3.4 L Chloride 108 Carbon Dioxide 25 Anion Gap 10 BUN 23 Creatinine 0.73 Est GFR ( Amer) 91.5 Est GFR (Non-Af Amer) 75.6 BUN/Creatinine Ratio 31.5 H Glucose 148 H Lactic Acid 1.9 Calcium 9.2 Magnesium 2.1 Total Bilirubin 0.60 AST 29 ALT 15 Alkaline Phosphatase 61 Troponin I 0.01 Total Protein 6.5 Albumin 3.9 Globulin 2.6 Albumin/Globulin Ratio 1.5 TSH 4.70 12/23/19 14:36 WBC RBC Hgb Hct MCV MCH MCHC RDW Plt Count MPV Neut % (Auto) Lymph % (Auto) [place] % (Auto) Eos % (Auto) Baso % (Auto) Absolute Neuts (auto) Absolute Lymphs (auto) Absolute Monos (auto) Absolute Eos (auto) Absolute Basos (auto) Absolute Nucleated RBC Nucleated RBC % Sodium Potassium Chloride Carbon Dioxide Anion Gap BUN Creatinine Est GFR ( Amer) Est GFR (Non-Af Amer) BUN/Creatinine Ratio Glucose Lactic Acid Calcium Magnesium Total Bilirubin AST ALT Alkaline Phosphatase Troponin I 0.01 Total Protein Albumin Globulin Albumin/Globulin Ratio TSH Imaging: Chest xray 12/23: Hyperinflation, no cardiopulmonary disease EKG 12/23: Sinus bradycardia, right bundle branch block, widened QRS Assessment: 84F with known medical history of HTN, gastric ulcer, glaucoma, mild dementia, and congenital heart surgery, presents on 12/23 after a near syncopal episode in her collections attorney's office. One episode of bradycardia in 20's during admission in the ED that resolved spontaneously. Plan: Neuro- - Mild dementia. Delirium prec; avoid BDZ - Will hold donepezil per cardio request CVS- - Symptomatic bradycardia: acute. HR recovered spontaneously after it dropped to 20's. - PRN atropine for persistent bradycardia - Consulted cardiology - Obtain echo, troponins x2 - Hold amlodipine -Maintain MAP>65 Resp- - No active issues -Keep sat>92% -IS ID- - No active issues - WBC slightly elevated, will recheck in AM GI- -Nutrition: Regular -GI prophylaxis protonix for history of perforated gastric ulcer in past Renal- -strict I/O, replete to keep K>4, Mg>2 - Crespo not indicated Heme- - No active issues - SCDs Endo- Maintain BG<200, insulin protocol as needed Musculsk- pressure ulcer prophylaxis.OOB as tolerated Wounds- none Nutrition- Regular DVT prophylaxis:SCDs GI prophylaxis:Protonix Disposition: Admit to ICU; Expected LOS>2 midnights; Patient requires Critical Care/ICU for symptomatic bradycardia Patient Clinical Status: Guarded Code Status: DNR/DNI Total Critical Care time is 30 minutes
[2019-12-23 15:01] LABS: Troponin I 0.01 ng/mL (<0.03)
[2019-12-23] MEDS ORDERED: Atropine SYRINGE* 0.1 MG/ML 10 ML SYRINGE (1 MG) ONE (15:09)
--- NOTE | 2019-12-23 15:46 | PN ---
Progress Note - Progress Note Date of Service: 12/23/19 - Critical Care SOAP: I have seen and examined the patient with Hailee York. 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 1. Symptomatic bradycardia 2. hx of hypertension 3. hx of a gastric ulcer 4. Glaucoma 5. Mild Dementia 6. DNR/DNI 7. Aortic Repair hx Plan: The patient will be monitored in the ICU. We will check troponin x 2. We will check an echocardiogram. Cardiology is consulted. We will check electrolytes. We will keep the K above 4 and the magnesium above 2. Atropine at bedside. Glaucoma meds to continue. She will be on a ppi. If she has a good night. She may be able to go to the floor. The patient requires intensive medical decision making to prevent adverse outcomes. The ccm time is 30 minutes.
[2019-12-23] MEDS ORDERED: Pantoprazole IV* 40 MG IV SCH (16:00)
[2019-12-23] MEDS ORDERED: Atropine 1MG/ML INJ* 1 ML VIAL IV PUSH PRN (17:17)
--- NOTE | 2019-12-23 17:28 | CONSULT ---
Subjective Date of Service: 12/23/19 Interval History: Admission and consult Date: 12/23/19 Service: Medicine/ICU PCP: Dr. Reynolds CHIEF COMPLAINT: Near syncope Reason for consult: bradycardia HPI : 84 year old woman with a history as below. Was at attorneys office and patient was found with unresponsiveness without full syncope. Here in the ER she was found with intermittent severe bradycardia with transient ventricular escape rhythm. She does have mild dementia and has been on aricept for a month. She denies using current beta-leandro eye drops. She denies this ever having this before, I would because she lives alone and has memory loss this is not entirely reliable history. She does drive and is independent. She has no chest pain or dyspnea. Here with friends. No rashes Pmhx: Coarctation repair PMHx: HTN dementia glaucoma valvular heart disease perforated gastric ulcer PSHx: aortic coarctation repair 1991 Family History: Father lung and prostate cancer, mother with arthritis. Social History Rarely drinks wine, denies tobacco or drug use. She lives at home alone but does have help around the house. No children. Medications Active Medications: Atropine Sulfate (Atropine 1mg/Ml Inj*) 0.5 mg IV PUSH Q3M PRN PRN Reason: BRADYCARDIA Pantoprazole Sodium (Protonix Iv*) 40 mg IV Q24H HELEN Home Medications: Amlodipine Besylate [Norvasc] 5 mg PO DAILY 12/23/19 [History Confirmed 12/23/19 ] Donepezil TAB* [Aricept 5 MG TAB*] 5 mg PO DAILY 12/23/19 [History Confirmed ] Review of Systems - Measurements Intake and Output: Intake and Output Last 24 Hours 12/21/19 12/22/19 12/23/19 12/24/19 06:59 06:59 06:59 06:59 Output Total 0 Balance 0 Weight 85 lb Output: Urine 0 - Review of Systems Constitutional Symptoms: Negative: Weight Gain, Weight Loss, Fever Dermatology: Negative: Rash, Skin Lesions HEENT: Negative: Change in Hearing, Vertigo Eyes: Negative: Change in Vision, Double Vision Thyroid: Negative: Cold Intolerance, Heat Intolerance, Palpitations Pulmonary: Negative: Cough, Sputum, Hemoptysis, Respiratory Distress, Shortness of Breath, Exercise Intolerance Cardiology: Positive: Faintness Negative: Chest Pain, Shortness of Breath, Palpitations, Swelling of Ankles, Peripheral Vascular Dis, Edema, Syncope, Claudication, Paroxysmal Nocturnal Dyspnea, Orthopnea Gastroenterology: Negative: Abdominal Pain, Nausea, Vomiting, Anorexia, Blood in Stools, Haematemesis, Melena Genital - Urinary: Negative: Dysuria, Hematuria, Nocturia Musculoskeletal: Negative: Joint Pain, Joint Stiffness Endocrinology: Negative: Obesity, Diabetes, Polydipsia, Polyuria Hematologic/Lymphatic: Negative: Use of Anticoagulant, Use of Antiplatelet Drugs Neurology: Negative: Hx of Stroke\TIA, Hx Seizures Psychiatry: Negative: Unusual Anxiety, Suicidal Ideation Allergic/Immunologic: Negative: Hx HIV, Immunocompromise Review of Systems Statement: All other review of systems negative, unless stated above. Objective Vital Signs: Temp Pulse Resp BP Pulse Ox 98.7 F 58 16 128/55 100 12/23/19 15:30 12/23/19 16:00 12/23/19 16:00 12/23/19 16:00 12/23/19 16:00 Oxygen Devices in Use Now: None Appearance: elderly, pleasant, NAD Ears/Nose/Mouth/Throat: Clear Oropharnyx, Mucous Membranes Moist Neck: NL Appearance and Movements; NL JVP, Trachea Midline Respiratory: Symmetrical Chest Expansion and Respiratory Effort, Clear to Auscultation Cardiovascular: RRR, No Edema, - - 1/6 systolic murmur Abdominal: NL Sounds; No Tenderness; No Distention Extremities: No Edema, No Clubbing, Cyanosis Skin: No Rash or Ulcers Neurological: - - awake, alert, conversant Laboratory Results: 12/23/19 11:30 12/23/19 11:30 Total Bilirubin 0.60 mg/dL (0.2-1.0) 12/23/19 11:30 AST 29 U/L (13-39) 12/23/19 11:30 ALT 15 U/L (7-52) 12/23/19 11:30 Alkaline Phosphatase 61 U/L (34-104) 12/23/19 11:30 B-Natriuretic Peptide 101 pg/mL (<=100) H 12/23/19 11:00 Total Protein 6.5 g/dL (6.4-8.9) 12/23/19 11:30 Albumin 3.9 g/dL (3.2-5.2) 12/23/19 11:30 Globulin 2.6 g/dL (2-4) 12/23/19 11:30 Albumin/Globulin Ratio 1.5 (1-3) 12/23/19 11:30 TSH 4.70 mcIU/mL (0.34-5.60) 12/23/19 11:30 12/23/19 12/23/19 11:30 14:36 Troponin I 0.01 0.01 Diagnostic Imaging: Transthoracic Echocardiogram 12/23/2019 Conclusions Summary: - Left ventricle: The cavity size is normal. Wall thickness is mildly increased. Systolic function is vigorous. The estimated ejection fraction is 70-75%. Wall motion is normal; there are no regional wall motion abnormalities. - Right ventricle: The cavity size is normal. Systolic function is normal. - Left atrium: The atrium is mildly dilated. - Mitral valve: The findings are consistent with mild stenosis. - Aortic valve: The findings are consistent with very mild stenosis. - Pericardium, extracardiac: There is no significant pericardial effusion. - Pulmonary arteries: Systolic pressure is mildly increased, estimated to be 41 mm Hg. Recommendations: Compared to prior from 11/24/2019, findings are similar. Peak gradient through descending aorta not obtained on this study but was ~ 10 mmHg on study earlier this month. Exam Date: 12/23/19 ct brain IMPRESSION: 1. No acute intracranial abnormality by CT. 2. Mild chronic small vessel ischemic disease is likely. Exam Date: 12/23/19 CXR IMPRESSION: HYPERINFLATION. NO ACTIVE CARDIOPULMONARY DISEASE. EKG Data: EKG admission NSR, 1 avb, RBBB, non-specific st/t changes Telemetry during symptoms severe sinus bradycardia and arrest, periods of ventricular escape at or less than 30 bpm Assessment/Plan Patient with symptomatic bradycardia, period of ventricular escape without any significant reversible causes - Permanent pacemaker indicated and recommended. Risks, benefits and alternatives discussed and patient wishes to proceed. Will plan on Thursday with Dr. Kohler. Keep pads on and atropine at bedside. Hold aricept until after procedure.
--- NOTE | 2019-12-23 17:41 | ECHO ---
*[facility]* [place] [address] Fax #: [phone] Transthoracic Echocardiogram Patient: Cheri Bishop : 1935 Study Date: 12/23/2019 Age: 84 Gender: F HR: 64 bpm Height: 62 in /157.5 cm BSA: 1.33 m^2 Weight: 84.8 lb /38.6 kg BMI: 15.5 kg/m^2 *Ged Tutor: * Julita Freitas RDCS RN *Referring Physician: * Sergio Snider *Reading Physician: * Yazan Dhaliwal MD Indications: Syncope. Symptomatic bradycardia. History: Risk factors: Hypertension. Dyslipidemia. Conclusions Summary: - Left ventricle: The cavity size is normal. Wall thickness is mildly increased. Systolic function is vigorous. The estimated ejection fraction is 70-75%. Wall motion is normal; there are no regional wall motion abnormalities. - Right ventricle: The cavity size is normal. Systolic function is normal. - Left atrium: The atrium is mildly dilated. - Mitral valve: The findings are consistent with mild stenosis. - Aortic valve: The findings are consistent with very mild stenosis. - Pericardium, extracardiac: There is no significant pericardial effusion. - Pulmonary arteries: Systolic pressure is mildly increased, estimated to be 41 mm Hg. Recommendations: Compared to prior from 11/24/2019, findings are similar. Peak gradient through descending aorta not obtained on this study but was ~ 10 mmHg on study earlier this month. Study data: Transthoracic echocardiogram. Procedure: Transthoracic echocardiography was performed. Image quality was fair. The study was technically limited due to body habitus. Complete 2D, spectral Doppler, and color flow Doppler. Location: ICU Patient status: Inpatient. Patient room number: ICU-1. Rhythm: Normal sinus rhythm with PAC's. Findings Left ventricle: The cavity size is normal. Wall thickness is mildly increased. Systolic function is vigorous. The estimated ejection fraction is 70-75%. Wall motion is normal; there are no regional wall motion abnormalities. Left ventricular diastolic function parameters are indeterminate. Right ventricle: The cavity size is normal. Systolic function is normal. Left atrium: The atrium is mildly dilated. Right atrium: The atrium is normal in size. Mitral valve: The mitral valve annulus appears calcified. The leaflets are mild-moderately thickened. The findings are consistent with mild stenosis. There is mild regurgitation. Aortic valve: A bicuspid morphology cannot be excluded. The anterior cusp is mildly thickened and mobile. The more posterior cusp is heavily calcified with restricted mobility. The findings are consistent with very mild stenosis. There is mild regurgitation. Tricuspid valve: The valve is structurally normal. There is no evidence of stenosis. There is mild regurgitation. Pulmonic valve: Not well visualized. There is trace to mild regurgitation. Aorta: Aortic root: The aortic root is not dilated. Ascending aorta: The ascending aorta is not visualized. Aortic arch: The aortic arch is not visualized. Pericardium: There is no significant pericardial effusion. Pulmonary arteries: Not well visualized. Systolic pressure is mildly increased, estimated to be 41 mm Hg. Systemic veins: Inferior vena cava: The vessel is normal in size. There is (>= 50%) respiratory change in the IVC dimension. Measurements Left ventricle Value Ref Aortic valve Value Ref ENOC, LAX (L) 3.4 cm 3.8 - Rossy diam, ED 1.9 cm ---- 5.2 Rossy diam/bsa, ED 1.4 cm/m^2 ---- ESD, LAX (L) 1.8 cm 2.2 - Peak v, S 1.8 m/sec ---- 3.5 VTI, S 47.8 cm ---- FS, LAX (H) 47 % 27 - 45 Mean grad, S 7.0 mm Hg ---- PW, ED 0.7 cm 0.6 - Peak grad, S 13.0 mm Hg ---- 0.9 LVOT/AV, VTI ratio 0.61 ---- IVS/PW, ED 1.51 ------- EZIO, VTI 1.72 cm^2 ---- E', lat rossy, TDI (L) 5.4 cm/sec >=10.0 EZIO, Vmax 1.94 cm^2 --- - E/e', lat rossy, TDI 23 ------- E', med rossy, TDI (L) 4.7 cm/sec >=7.0 Mitral valve Value Ref E/e', med rossy, TDI 27 ------- Peak E 1.25 m/sec ---- E', avg, TDI 5.1 cm/sec ------- Peak A 1.38 m/sec ---- E/e', avg, TDI (H) 25 <=14 Decel time 155 ms --- - PHT 75 ms ---- LVOT Value Ref Mean grad, D 5.0 mm Hg ---- Diam, S 1.90 cm ------- Peak grad, D 9.0 mm Hg ---- Area 2.8 cm^2 ------- Peak E/A ratio 0.9 ---- Peak rosie, S 1.23 m/sec ------- MVA, PHT 2.9 cm^2 ---- VTI, S 29.0 cm ------- Peak grad, S 6 mm Hg ------- Pulmonic valve Value Ref Mean grad, S 2 mm Hg ------- Peak v, S 1.06 m/sec ---- SV 57 ml ------- Peak grad, S 4.0 mm Hg ---- SV/bsa 43 ml/m^2 ------- Tricuspid valve Value Ref Ventricular septum Value Ref Peak RV-RA grad, S 38 mm Hg ---- IVS, ED (H) 1.1 cm 0.6 - Max TR rosie 3.1 m/sec ---- 0.9 Aortic root Value Ref Right ventricle Value Ref Root diam 3.1 cm <3.6 Pressure, S 41 mm Hg ------- Pulmonary artery Value Ref Left atrium Value Ref Pressure, S 41.0 mm Hg ---- ML dim, A4C 4.3 cm ------- SI dim, A4C 4.9 cm ------- Inferior vena cava Value Ref Vol/bsa, ES, 1-p 37 ml/m^2 11 - 40 Diam 0.9 cm ---- A4C Right atrium Value Ref ML dim, ES, A4C 3.6 cm 2.6 - 4.4 SI dim, ES, A4C 4.4 cm 3.4 - 5.3 Estimated RAP 3 mm Hg ------- Legend: (L) and (H) jaycob values outside specified reference range. Prepared and electronically signed by Yazan Dhaliwal MD 12/23/2019 17:40
[2019-12-23 19:02] LABS: BUN/Creatinine Ratio 30.3 (8-20); Calcium 8.7 mg/dL (8.6-10.3); EGFR African American 102.7 (>60); EGFR Non-African American 84.9 (>60); Potassium 3.7 mmol/L (3.5-5.0)
[2019-12-23] MEDS: Brinzolamid/Brimonidin OPH(NF) 1 DROP BTL BOTH EYES SCH (20:23)
[2019-12-23] MEDS ORDERED: Timolol 0.5% OPTH.SOL* BTL BOTH EYES SCH (21:00)
[2019-12-24 05:49] LABS: Hematocrit 39 % (35-47); Hemoglobin 13.1 g/dL (12.0-16.0); Mean Corpuscular HGB Conc 34 g/dL (31-36); Mean Corpuscular Hemoglobin 30 pg (27-31); Mean Corpuscular Volume 87 fL (80-97); Mean Platelet Volume 8.1 fL (7.4-10.4); Platelet Count 256 10^3/uL (150-450); Red Blood Count 4.46 10^6 /uL (3.70-4.87); Red Cell Distribution Width 14 % (10-15); White Blood Count 9.5 10^3/uL (3.5-10.8)
[2019-12-24 05:56] LABS: BUN/Creatinine Ratio 21.7 (8-20); Calcium 8.9 mg/dL (8.6-10.3); EGFR African American 114.7 (>60); EGFR Non-African American 94.8 (>60); Potassium 3.5 mmol/L (3.5-5.0)
[2019-12-24] MEDS: Brinzolamid/Brimonidin OPH(NF) 1 DROP BTL BOTH EYES SCH ×2 (07:44→19:52)
[2019-12-24] MEDS ORDERED: Donepezil TAB* 5 MG PO SCH (09:00)
--- NOTE | 2019-12-24 12:22 | PN ---
Subjective Date of Service: 12/24/19 Interval History: No acute events overnight. Admitted for pre-syncopal episode, with HR in ER noted to be 20s, which spontaneously increased to normal. Patient has had no further episodes of bradycardia and no further symptoms. States she feels well this morning and would like to walk around more. Has ambulated with staff without symptoms. Objective Active Medications: Atropine Sulfate (Atropine 1mg/Ml Inj*) 0.5 mg IV PUSH Q3M PRN PRN Reason: BRADYCARDIA Brinzolamide/Brimonidine Tartrate (Simbrinza Oph.Susp(Nf)) 1 drop BOTH EYES BID HELEN Last Admin: 12/24/19 07:44 Dose: Not Given Vital Signs - 8 hr 12/24/19 12/24/19 12/24/19 05:00 06:00 07:00 Temperature Pulse Rate 61 58 61 Respiratory 16 16 18 Rate Blood Pressure 153/66 145/68 151/75 (mmHg) O2 Sat by Pulse 98 98 97 Oximetry 12/24/19 12/24/19 12/24/19 08:00 08:17 09:00 Temperature Pulse Rate 62 68 72 Respiratory 23 18 17 Rate Blood Pressure 151/78 (mmHg) O2 Sat by Pulse 98 99 98 Oximetry 12/24/19 12/24/19 12/24/19 09:42 09:54 10:00 Temperature 97.7 F Pulse Rate 69 Respiratory 22 24 Rate Blood Pressure 118/73 (mmHg) O2 Sat by Pulse 99 Oximetry 12/24/19 11:00 Temperature Pulse Rate 67 Respiratory 18 Rate Blood Pressure (mmHg) O2 Sat by Pulse 98 Oximetry Oxygen Devices in Use Now: None Appearance: frail elderly woman in NAD Eyes: No Scleral Icterus Ears/Nose/Mouth/Throat: NL Teeth, Lips, Gums, Clear Oropharnyx Neck: NL Appearance and Movements; NL JVP, Trachea Midline Respiratory: Symmetrical Chest Expansion and Respiratory Effort, Clear to Auscultation Cardiovascular: NL Sounds; No Murmurs; No JVD, RRR Abdominal: NL Sounds; No Tenderness; No Distention, No Hepatosplenomegaly Extremities: No Edema Skin: No Rash or Ulcers Neurological: - - AOx2 (didn't know date) Result Diagrams: 12/24/19 05:27 12/24/19 05:27 Additional Lab and Data: Lab Results 12/23/19 12/23/1912/23/20 Range/Units 11:30 11:30 11:30 WBC 11.7 H (3.5-10.8) 10^3/uL RBC 4.59 (3.70-4.87) 10^6 /uL Hgb 13.4 (12.0-16.0) g/dL Hct 40 (35-47) % MCV 88 (80-97) fL MCH 29 (27-31) pg MCHC 33 (31-36) g/dL RDW 14 (10-15) % Plt Count 248 (150-450) 10^3/uL MPV 8.1 (7.4-10.4) fL Neut % (Auto) 88.7 % Lymph % (Auto) 6.1 % [place] % (Auto) 4.5 % Eos % (Auto) 0.2 % Baso % (Auto) 0.5 % Absolute Neuts (auto) 10.4 H (1.5-7.7) 10^3/ul Absolute Lymphs (auto) 0.7 L (1.0-4.8) 10^3/ul Absolute Monos (auto) 0.5 (0-0.8) 10^3/ul Absolute Eos (auto) 0.0 (0-0.6) 10^3/ul Absolute Basos (auto) 0.1 (0-0.2) 10^3/ul Absolute Nucleated RBC 0.0 10^3/ul Nucleated RBC % 0.0 Sodium 143 (135-145) mmol/L Potassium 3.4 L (3.5-5.0) mmol/L Chloride 108 (101-111) mmol/L Carbon Dioxide 25 (22-32) mmol/L Anion Gap 10 (2-11) mmol/L BUN 23 (6-24) mg/dL Creatinine 0.73 (0.51-0.95) mg/dL Est GFR ( Amer) 91.5 (>60) Est GFR (Non-Af Amer) 75.6 (>60) BUN/Creatinine Ratio 31.5 H (8-20) Glucose 148 H (70-100) mg/dL Lactic Acid 1.9 (0.5-2.0) mmol/L Calcium 9.2 (8.6-10.3) mg/dL Magnesium 2.1 (1.9-2.7) mg/dL Total Bilirubin 0.60 (0.2-1.0) mg/dL AST 29 (13-39) U/L ALT 15 (7-52) U/L Alkaline Phosphatase 61 (34-104) U/L Troponin I 0.01 (<0.03) ng/mL Total Protein 6.5 (6.4-8.9) g/dL Albumin 3.9 (3.2-5.2) g/dL Globulin 2.6 (2-4) g/dL Albumin/Globulin Ratio 1.5 (1-3) TSH 4.70 (0.34-5.60) mcIU/mL Microbiology and Other Data: Microbiology 12/23/19 15:28 Nasal Screen MRSA (PCR) - Final Nasal Mrsa Not Detected Assess/Plan/Problems-Billing Assessment: 84W with HTN, dementia, glaucoma, and h/o perforated gastric ulcer, presents after near-syncope, found with bradycardia that spontaneously resolved. - Patient Problems (1) Bradycardia Comment: - appreciate cards recs - plan for pacer on Thursday - tele, atropine at bedside, pacer pads on (2) Dementia Comment: - hold home donepezil, per cards (just started), until after PPM placed (3) Glaucoma Comment: Continue home Simbrinza gtt. (4) HTN (hypertension) Comment: - holding home amlo - monitor BPs (5) DVT prophylaxis Comment: ambulate/SCDs pending procedure
[2019-12-24] MEDS: Enoxaparin(*) 30 MG/0.3 ML SYR SUBCUT SCH (17:25)
[2019-12-25 06:16] LABS: BUN/Creatinine Ratio 28.8 (8-20); Calcium 9.2 mg/dL (8.6-10.3); EGFR African American 91.5 (>60); EGFR Non-African American 75.6 (>60); Magnesium 2.1 mg/dL (1.9-2.7); Potassium 3.6 mmol/L (3.5-5.0)
--- NOTE | 2019-12-25 10:07 | PN ---
Subjective Date of Service: 12/25/19 Interval History: f/u symptomatic bradycardia no cp, dizziness or dyspnea tele: sinus Medications Active Medications: Atropine Sulfate (Atropine 1mg/Ml Inj*) 0.5 mg IV PUSH Q3M PRN PRN Reason: BRADYCARDIA Brinzolamide/Brimonidine Tartrate (Simbrinza Oph.Susp(Nf)) 1 drop BOTH EYES BID [facility] Last Admin: 12/24/19 19:52 Dose: Not Given Enoxaparin Sodium (Lovenox(*)) 30 mg SUBCUT Q24H [facility] Stop: 12/25/19 17:01 Last Admin: 12/24/19 17:25 Dose: 30 mg Sodium Chloride (Ns 0.9% 1000 Ml) 1,000 mls @ 75 mls/hr IV PER RATE [facility] Objective Vital Signs: Temp Pulse Resp BP Pulse Ox 97.2 F 81 16 114/66 99 12/25/19 07:42 12/25/19 08:59 12/25/19 07:42 12/25/19 08:59 12/25/19 07:42 Oxygen Devices in Use Now: None Appearance: elderly, pleasant, NAD Ears/Nose/Mouth/Throat: Clear Oropharnyx, Mucous Membranes Moist Neck: NL Appearance and Movements; NL JVP, Trachea Midline Respiratory: Symmetrical Chest Expansion and Respiratory Effort, Clear to Auscultation Cardiovascular: RRR, No Edema, - - 1/6 systolic murmur Abdominal: NL Sounds; No Tenderness; No Distention Extremities: No Edema, No Clubbing, Cyanosis Skin: No Rash or Ulcers Neurological: - - awake, alert, conversant Laboratory Results: 12/24/19 05:27 12/25/19 05:44 Total Bilirubin 0.60 mg/dL (0.2-1.0) 12/23/19 11:30 AST 29 U/L (13-39) 12/23/19 11:30 ALT 15 U/L (7-52) 12/23/19 11:30 Alkaline Phosphatase 61 U/L (34-104) 12/23/19 11:30 B-Natriuretic Peptide 101 pg/mL (<=100) H 12/23/19 11:00 Total Protein 6.5 g/dL (6.4-8.9) 12/23/19 11:30 Albumin 3.9 g/dL (3.2-5.2) 12/23/19 11:30 Globulin 2.6 g/dL (2-4) 12/23/19 11:30 Albumin/Globulin Ratio 1.5 (1-3) 12/23/19 11:30 TSH 4.70 mcIU/mL (0.34-5.60) 12/23/19 11:30 12/23/19 12/23/19 12/23/19 11:30 14:36 20:30 Troponin I 0.01 0.01 0.01 Diagnostic Imaging: Transthoracic Echocardiogram 12/23/2019 Conclusions Summary: - Left ventricle: The cavity size is normal. Wall thickness is mildly increased. Systolic function is vigorous. The estimated ejection fraction is 70-75%. Wall motion is normal; there are no regional wall motion abnormalities. - Right ventricle: The cavity size is normal. Systolic function is normal. - Left atrium: The atrium is mildly dilated. - Mitral valve: The findings are consistent with mild stenosis. - Aortic valve: The findings are consistent with very mild stenosis. - Pericardium, extracardiac: There is no significant pericardial effusion. - Pulmonary arteries: Systolic pressure is mildly increased, estimated to be 41 mm Hg. Recommendations: Compared to prior from 11/24/2019, findings are similar. Peak gradient through descending aorta not obtained on this study but was ~ 10 mmHg on study earlier this month. Exam Date: 12/23/19 ct brain IMPRESSION: 1. No acute intracranial abnormality by CT. 2. Mild chronic small vessel ischemic disease is likely. Exam Date: 12/23/19 CXR IMPRESSION: HYPERINFLATION. NO ACTIVE CARDIOPULMONARY DISEASE. EKG Data: EKG admission NSR, 1 avb, RBBB, non-specific st/t changes Telemetry during symptoms severe sinus bradycardia and arrest, periods of ventricular escape at or less than 30 bpm Assessment/Plan Patient with symptomatic bradycardia, period of ventricular escape without any significant reversible causes plan for pacemaker Thursday12/26/[address] Kohler. Hold aricept until after procedure Last dose dvt prophylaxis today, npo for tomorrow with IVF (ordered)
[2019-12-25] MEDS: Brinzolamid/Brimonidin OPH(NF) 1 DROP BTL BOTH EYES SCH ×2 (10:28→20:14)
--- NOTE | 2019-12-25 11:20 | PN ---
Subjective Date of Service: 12/25/19 Interval History: Patient was aymptomatic overnight, no complain of pain, SOB, palpitation. Although telemetry showing sinus abi, and periods of ventricular escape Objective Active Medications: Atropine Sulfate (Atropine 1mg/Ml Inj*) 0.5 mg IV PUSH Q3M PRN PRN Reason: BRADYCARDIA Brinzolamide/Brimonidine Tartrate (Simbrinza Oph.Susp(Nf)) 1 drop BOTH EYES BID [facility] Last Admin: 12/25/19 10:28 Dose: Not Given Enoxaparin Sodium (Lovenox(*)) 30 mg SUBCUT Q24H [facility] Stop: 12/25/19 17:01 Last Admin: 12/24/19 17:25 Dose: 30 mg Sodium Chloride (Ns 0.9% 1000 Ml) 1,000 mls @ 75 mls/hr IV PER RATE [facility] Vital Signs - 8 hr 12/25/19 12/25/19 12/25/19 04:51 07:42 08:59 Temperature 97.5 F 97.2 F Pulse Rate 65 66 81 Respiratory 16 16 Rate Blood Pressure 160/59 173/69 114/66 (mmHg) O2 Sat by Pulse 98 99 Oximetry Oxygen Devices in Use Now: None Exam: Appearance: frail elderly woman in NAD, happily demented. Eyes: No Scleral Icterus Ears/Nose/Mouth/Throat: NL Teeth, Lips, Gums, Clear Oropharnyx Neck: NL Appearance and Movements; NL JVP, Trachea Midline Respiratory: Symmetrical Chest Expansion and Respiratory Effort, Clear to Auscultation Cardiovascular: NL Sounds; No Murmurs; No JVD, RRR Abdominal: NL Sounds; No Tenderness; No Distention, No Hepatosplenomegaly Extremities: No Edema Skin: No Rash or Ulcers Neurological: - - AOx2 (didn't know date) Result Diagrams: 12/24/19 05:27 12/25/19 05:44 Additional Lab and Data: Lab Results 12/23/19 12/23/19 12/23/19 Range/Units 11:30 11:30 11:30 WBC 11.7 H (3.5-10.8) 10^3/uL RBC 4.59 (3.70-4.87) 10^6 /uL Hgb 13.4 (12.0-16.0) g/dL Hct 40 (35-47) % MCV 88 (80-97) fL MCH 29 (27-31) pg MCHC 33 (31-36) g/dL RDW 14 (10-15) % Plt Count 248 (150-450) 10^3/uL MPV 8.1 (7.4-10.4) fL Neut % (Auto) 88.7 % Lymph % (Auto) 6.1 % [place] % (Auto) 4.5 % Eos % (Auto) 0.2 % Baso % (Auto) 0.5 % Absolute Neuts (auto) 10.4 H (1.5-7.7) 10^3/ul Absolute Lymphs (auto) 0.7 L (1.0-4.8) 10^3/ul Absolute Monos (auto) 0.5 (0-0.8) 10^3/ul Absolute Eos (auto) 0.0 (0-0.6) 10^3/ul Absolute Basos (auto) 0.1 (0-0.2) 10^3/ul Absolute Nucleated RBC 0.0 10^3/ul Nucleated RBC % 0.0 Sodium 143 (135-145) mmol/L Potassium 3.4 L (3.5-5.0) mmol/L Chloride 108 (101-111) mmol/L Carbon Dioxide 25 (22-32) mmol/L Anion Gap 10 (2-11) mmol/L BUN 23 (6-24) mg/dL Creatinine 0.73 (0.51-0.95) mg/dL Est GFR ( Amer) 91.5 (>60) Est GFR (Non-Af Amer) 75.6 (>60) BUN/Creatinine Ratio 31.5 H (8-20) Glucose 148 H (70-100) mg/dL Lactic Acid 1.9 (0.5-2.0) mmol/L Calcium 9.2 (8.6-10.3) mg/dL Magnesium 2.1 (1.9-2.7) mg/dL Total Bilirubin 0.60 (0.2-1.0) mg/dL AST 29 (13-39) U/L ALT 15 (7-52) U/L Alkaline Phosphatase 61 (34-104) U/L Troponin I 0.01 (<0.03) ng/mL Total Protein 6.5 (6.4-8.9) g/dL Albumin 3.9 (3.2-5.2) g/dL Globulin 2.6 (2-4) g/dL Albumin/Globulin Ratio 1.5 (1-3) TSH 4.70 (0.34-5.60) mcIU/mL Microbiology and Other Data: Microbiology 12/23/19 15:28 Nasal Screen MRSA (PCR) - Final Nasal Mrsa Not Detected Assess/Plan/Problems-Billing Assessment: 84W with HTN, dementia, glaucoma, and h/o perforated gastric ulcer, presents after near-syncope, found with bradycardia and ventricular escape, plan for pacer. - Patient Problems (1) Bradycardia Comment: - symptomatic bradycardia, severe sinus abi and periods of ventricular escape in telemetry - appreciate cards recs - plan for pacer on Thursday - tele, atropine at bedside, pacer pads on - hold aricept until after pacer (2) Dementia Comment: - hold home donepezil, per cards (just started), until after PPM placed (3) Glaucoma Comment: Continue home Simbrinza gtt. (4) HTN (hypertension) Comment: - holding home amlo - monitor BPs (5) DVT prophylaxis Comment: Sc Lovenox Status and Disposition: Inpatient Medicine. Pacer tomorrow and home if uneventful after pacer Attestation Documenting Resident: Ligia Harrison Supervising Physician: Ade Chow Attending/Supervising Physician Comment: Pending PPM placement tomorrow. No further symptoms. Pt does not know why she is here, where she is, or what the date is. She cannot state her best friend and HCP's name, nor the name of her friend's son, who has been in the hospital with her every day. She is pleasantly demented and states she has a "leaky brain ". If PT recommends rehab after placement of PPM, she may not have capacity to refuse. Attestation: This service has been performed in part by a resident under the direction of a teaching physician.I, Ade Chow, performed the service, or was physically present during the critical, or lagos portions of the service, furnished by the resident. I participated in the management of the patient.
[2019-12-25] MEDS: Enoxaparin(*) 30 MG/0.3 ML SYR SUBCUT SCH (17:12)
[2019-12-26] MEDS ORDERED: NS 0.9% 1000 ML** 1,000 ML IV SCH (06:00)
[2019-12-26] MEDS: Brinzolamid/Brimonidin OPH(NF) 1 DROP BTL BOTH EYES SCH ×2 (07:10→21:24)
[2019-12-26] MEDS ORDERED: amLODIPine TAB* 5 MG ONE (07:49)
[2019-12-26] MEDS: amLODIPine TAB* 5 MG PO SCH (07:57)
[2019-12-26] MEDS ORDERED: ceFAZolin 1 GM/10 ML flush(*) SYRINGE for pocket flush (cardiology) FLUSH ONE (08:48)
[2019-12-26] MEDS ORDERED: Diazepam TAB(*) 5 MG PO ONE (09:15)
[2019-12-26] MEDS ORDERED: ceFAZolin VIAL 1 GM in NS *SYRINGE * * 10 ML ONE (09:30)
[2019-12-26] MEDS ORDERED: ceFAZolin 2 GM PREMIX in ORs 2 GM/50 ML BAG IVPB ONE (09:30)
[2019-12-26] MEDS ORDERED: Diazepam TAB(*) 5 MG ONE (12:14)
[2019-12-26] MEDS ORDERED: Flumazenil* 0.1 MG/ML 5 ML MDV ONE (12:20)
[2019-12-26] MEDS ORDERED: Naloxone* 0.4 MG/ML 1 ML VIAL ONE (12:20)
[2019-12-26] MEDS ORDERED: fentaNYL* 50 MCG/ML 2 ML VIAL (100 MCG VIAL) ONE (12:20)
[2019-12-26] MEDS ORDERED: Midazolam* 1 MG/ML 5 ML VIAL (5 MG) ONE (12:20)
[2019-12-26] MEDS ORDERED: Lidocaine 1% INJ* 10 MG/ML 30 ML SDV ONE (12:20)
[2019-12-26] MEDS ORDERED: Metoprolol Tartrate IV* 1 MG/ML 5 ML VIAL ONE (13:39)
[2019-12-26] MEDS ORDERED: Acetaminophen TAB* 325 MG PO PRN (15:15)
--- NOTE | 2019-12-26 17:18 | PN ---
Subjective Date of Service: 12/26/19 Interval History: Cheri is pleasant today. She is scheduled for pacemaker today. Discussed with her about care plan after this discharge, she stated she stayed alone, she had two friends visit her sometimes, but both not stay near. When she was asked about her friend's name, she laughed and said "I don't remember, see, my brain sometimes forgets". Objective Active Medications: Acetaminophen (Tylenol Tab*) 650 mg PO Q4H PRN PRN Reason: PAIN - MILD Amlodipine Besylate (Norvasc Tab*) 5 mg PO DAILY [facility] Last Admin: 12/26/19 07:57 Dose: 5 mg Atropine Sulfate (Atropine 1mg/Ml Inj*) 0.5 mg IV PUSH Q3M PRN PRN Reason: BRADYCARDIA Brinzolamide/Brimonidine Tartrate (Simbrinza Oph.Susp(Nf)) 1 drop BOTH EYES BID [facility] Last Admin: 12/26/19 07:10 Dose: Not Given Sodium Chloride (Ns 0.9% 1000 Ml) 1,000 mls @ 75 mls/hr IV PER RATE [facility] Last Admin: 12/26/19 05:59 Dose: 75 mls/hr Cefazolin Sodium 1 gm/ Sodium (Chloride) 50 mls @ 200 mls/hr IVPB Q8H [facility] Stop: 12/27/19 13:14 Vital Signs - 8 hr 12/26/19 12/26/19 12/26/19 12:06 12:08 12:18 Temperature Pulse Rate 69 70 Respiratory 12 24 16 Rate Blood Pressure 146/74 (mmHg) O2 Sat by Pulse 100 99 Oximetry 12/26/19 12/26/19 12/26/19 12:33 14:13 14:15 Temperature 97.1 F Pulse Rate 63 60 60 Respiratory 18 Rate Blood Pressure 156/66 146/69 (mmHg) O2 Sat by Pulse 100 98 99 Oximetry 12/26/19 12/26/19 12/26/19 14:21 14:24 14:51 Temperature 97.1 F Pulse Rate 60 60 Respiratory 16 Rate Blood Pressure 147/68 147/68 156/65 (mmHg) O2 Sat by Pulse 97 99 Oximetry 12/26/19 12/26/19 12/26/19 15:00 15:21 15:45 Temperature 98.2 F Pulse Rate 60 60 Respiratory Rate Blood Pressure 108/61 (mmHg) O2 Sat by Pulse 99 98 Oximetry 12/26/19 12/26/19 15:56 16:00 Temperature Pulse Rate 67 67 Respiratory Rate Blood Pressure 168/67 (mmHg) O2 Sat by Pulse 97 98 Oximetry Oxygen Devices in Use Now: None Exam: Appearance: frail elderly woman in NAD, happily demented. Eyes: No Scleral Icterus Ears/Nose/Mouth/Throat: NL Teeth, Lips, Gums, Clear Oropharnyx Neck: NL Appearance and Movements; NL JVP, Trachea Midline Respiratory: Symmetrical Chest Expansion and Respiratory Effort, Clear to Auscultation Cardiovascular: NL Sounds; No Murmurs; No JVD, RRR Abdominal: NL Sounds; No Tenderness; No Distention, No Hepatosplenomegaly Extremities: No Edema Result Diagrams: 12/24/19 05:27 12/25/19 05:44 Additional Lab and Data: Lab Results 12/23/19 12/23/19 12/23/19 Range/Units 11:30 11:30 11:30 WBC 11.7 H (3.5-10.8) 10^3/uL RBC 4.59 (3.70-4.87) 10^6 /uL Hgb 13.4 (12.0-16.0) g/dL Hct 40 (35-47) % MCV 88 (80-97) fL MCH 29 (27-31) pg MCHC 33 (31-36) g/dL RDW 14 (10-15) % Plt Count 248 (150-450) 10^3/uL MPV 8.1 (7.4-10.4) fL Neut % (Auto) 88.7 % Lymph % (Auto) 6.1 % [place] % (Auto) 4.5 % Eos % (Auto) 0.2 % Baso % (Auto) 0.5 % Absolute Neuts (auto) 10.4 H (1.5-7.7) 10^3/ul Absolute Lymphs (auto) 0.7 L (1.0-4.8) 10^3/ul Absolute Monos (auto) 0.5 (0-0.8) 10^3/ul Absolute Eos (auto) 0.0 (0-0.6) 10^3/ul Absolute Basos (auto) 0.1 (0-0.2) 10^3/ul Absolute Nucleated RBC 0.0 10^3/ul Nucleated RBC % 0.0 Sodium 143 (135-145) mmol/L Potassium 3.4 L (3.5-5.0) mmol/L Chloride 108 (101-111) mmol/L Carbon Dioxide 25 (22-32) mmol/L Anion Gap 10 (2-11) mmol/L BUN 23 (6-24) mg/dL Creatinine 0.73 (0.51-0.95) mg/dL Est GFR ( Amer) 91.5 (>60) Est GFR (Non-Af Amer) 75.6 (>60) BUN/Creatinine Ratio 31.5 H (8-20) Glucose 148 H (70-100) mg/dL Lactic Acid 1.9 (0.5-2.0) mmol/L Calcium 9.2 (8.6-10.3) mg/dL Magnesium 2.1 (1.9-2.7) mg/dL Total Bilirubin 0.60 (0.2-1.0) mg/dL AST 29 (13-39) U/L ALT 15 (7-52) U/L Alkaline Phosphatase 61 (34-104) U/L Troponin I 0.01 (<0.03) ng/mL Total Protein 6.5 (6.4-8.9) g/dL Albumin 3.9 (3.2-5.2) g/dL Globulin 2.6 (2-4) g/dL Albumin/Globulin Ratio 1.5 (1-3) TSH 4.70 (0.34-5.60) mcIU/mL Microbiology and Other Data: Microbiology 12/23/19 15:28 Nasal Screen MRSA (PCR) - Final Nasal Mrsa Not Detected Assess/Plan/Problems-Billing Assessment: 84W with HTN, dementia, glaucoma, and h/o perforated gastric ulcer, presents after near-syncope, found with sinus bradycardia and ventricular escape, plan for pacer today. - Patient Problems (1) Bradycardia Current Visit: Yes Status: Acute Code(s): R00.1 - BRADYCARDIA, UNSPECIFIED SNOMED Code(s): 70631831 Comment: - symptomatic bradycardia, severe sinus abi and periods of ventricular escape in telemetry - appreciate cards recs - atrial-ventricular dual-pacer was placed today, tolerating well, iv cefazolin post op - monitor overnight - restart aricept on discharge. (2) Dementia Current Visit: Yes Status: Acute Code(s): F03.90 - UNSPECIFIED DEMENTIA WITHOUT BEHAVIORAL DISTURBANCE SNOMED Code(s): 57034463 Comment: - continue donepezil on discharge. (3) Glaucoma Current Visit: Yes Status: Chronic Code(s): H40.9 - UNSPECIFIED GLAUCOMA SNOMED Code(s): 36269679 Comment: Continue home Simbrinza gtt. (4) HTN (hypertension) Current Visit: Yes Status: Chronic Code(s): I10 - ESSENTIAL (PRIMARY) HYPERTENSION SNOMED Code(s): 57034910 Comment: - holding home amlo - monitor BPs (5) DVT prophylaxis Current Visit: Yes Status: Acute Code(s): HOG9958 - SNOMED Code(s): 113836142 Comment: Sc Catherineloretta Status and Disposition: Inpatient Medicine. awaiting RAPHAEL Attestation Documenting Resident: Ligia Harrison Supervising Physician: Ade Chow Attestation: This service has been performed in part by a resident under the direction of a teaching physician.I, Ade Chow, performed the service, or was physically present during the critical, or lagos portions of the service, furnished by the resident. I participated in the management of the patient.
[2019-12-26] MEDS: ceFAZolin VIAL(*) 1 GM in NS 0.9% 50 ML* 50 ML IVPB SCH (22:01)
--- NOTE | 2019-12-27 04:06 | OP ---
CC: Dr. Yazan Dhaliwal * DATE OF OPERATION: 12/26/19 - ROOM #443 DATE OF : 31 SURGEON: Rosendo Kohler MD ANESTHESIA: Local anesthesia with conscious sedation. PRE-OP DIAGNOSES: Bradycardia, syncope. POST-OP DIAGNOSES: Bradycardia, syncope. OPERATIVE PROCEDURE: Dual chamber pacemaker implantation. INDICATIONS: The patient is an 84-year-old female who was brought to the hospital after having a syncopal episode in the emergency room and on the floor , she was noted to have severe sinus bradycardia with symptoms. Permanent pacemaker was recommended. ESTIMATED BLOOD LOSS: Nil. COMPLICATIONS: None. DESCRIPTION OF PROCEDURE: The patient was in a fasting state. Informed consent had been obtained prior to the procedure. All labs were reviewed. The patient was placed supine on the procedure table. Her left deltopectoral area was cleaned and draped in usual fashion. 1% lidocaine was used for local anesthesia. Under ultrasound guidance, the axillary vein was entered via Seldinger technique and a guidewire was placed. A second guidewire was placed with the same technique. A 3.5 cm incision was made in the pectoral, blunt dissection was carried down to the pectoral fascia and a pocket was fashioned for the pacemaker. Over the first guidewire, a 7-[place] sheath introducer was placed through which a right ventricular lead was advanced to the RV apex. The right ventricular lead is a Medtronic model 5076, serial #[id number]. It had an R-wave sensitivity of 7.6, impedance 751 ohms, threshold 0.5 volts at 0.5 milliseconds. The atrial lead was sutured to the pectoral fascia. Over the second guidewire, a 7-[place] sheath introducer was placed through which a right atrial lead was advanced to the high right atrium. The right atrial lead is a Medtronic model 5076, serial #[id number]. It had a P-wave sensitivity of 4.4, impedance 660 ohms, threshold 2.2 volts at 0.5 milliseconds. The atrial lead was sutured to the pectoral fascia. The pocket was flushed. A generator was attached appropriately to the atrioventricular lead. The generator was a Medtronic model W1DR01, serial #[id number]. The device was placed in the pocket. The surgical incision was closed in 3 layers. The patient was returned to holding area in stable condition. [id number]/[facility] #: [id number] [facility] CENTERKristian
[2019-12-27] MEDS: ceFAZolin VIAL(*) 1 GM in NS 0.9% 50 ML* 50 ML IVPB SCH ×2 (05:05→13:29)
[2019-12-27] MEDS: amLODIPine TAB* 5 MG PO SCH (07:54)
[2019-12-27] MEDS: Brinzolamid/Brimonidin OPH(NF) 1 DROP BTL BOTH EYES SCH ×2 (08:01→21:15)
[2019-12-27] MEDS: Donepezil TAB* 5 MG PO SCH (10:33)
[2019-12-27] MEDS ORDERED: amLODIPine TAB* 5 MG PO ONE (11:31)
--- NOTE | 2019-12-27 11:52 | PN ---
Subjective Date of Service: 12/27/19 - s/p DC PPM brian to bradycardia with syncope Interval History: f/u symptomatic bradycardia. Patient underwent DC PPM 12/26/[address] Kohler. Offers no c/o dizziness, sob, chest pain. CXR this morning revealed small apical left pneumothorax. Medications Active Medications: Acetaminophen (Tylenol Tab*) 650 mg PO Q4H PRN PRN Reason: PAIN - MILD Last Admin: 12/27/19 02:53 Dose: 650 mg Amlodipine Besylate (Norvasc Tab*) 5 mg PO DAILY [facility] Brinzolamide/Brimonidine Tartrate (Simbrinza Oph.Susp(Nf)) 1 drop BOTH EYES BID [facility] Last Admin: 12/27/19 08:01 Dose: Not Given Cephalexin HCl (Keflex Cap*) 250 mg PO TID [facility] Stop: 12/30/19 20:59 Donepezil HCl (Aricept Tab*) 5 mg PO DAILY [facility] Last Admin: 12/27/19 10:33 Dose: 5 mg Cefazolin Sodium 1 gm/ Sodium (Chloride) 50 mls @ 200 mls/hr IVPB Q8H [facility] Stop: 12/27/19 13:14 Last Admin: 12/27/19 05:05 Dose: 200 mls/hr Objective Vital Signs: Temp Pulse Resp BP Pulse Ox 97.6 F 66 20 177/71 100 12/27/19 07:00 12/27/19 07:00 12/27/19 08:00 12/27/19 07:00 12/27/19 07:00 Oxygen Devices in Use Now: None Appearance: elderly, pleasant, NAD Ears/Nose/Mouth/Throat: Clear Oropharnyx, Mucous Membranes Moist Neck: NL Appearance and Movements; NL JVP, Trachea Midline Respiratory: Symmetrical Chest Expansion and Respiratory Effort, Clear to Auscultation Cardiovascular: RRR, No Edema, - - 1/6 systolic murmur Abdominal: NL Sounds; No Tenderness; No Distention Extremities: No Edema, No Clubbing, Cyanosis Skin: No Rash or Ulcers, - - left anterior chest device site has scant dried blood noted on dressing. non tender to palpation. no oozing, no hematoma. Neurological: - - awake, alert, conversant Lines/Tubes/Other Access: Clean, Dry and Intact Peripheral IV Laboratory Results: 12/24/19 05:27 12/25/19 05:44 Total Bilirubin 0.60 mg/dL (0.2-1.0) 12/23/19 11:30 AST 29 U/L (13-39) 12/23/19 11:30 ALT 15 U/L (7-52) 12/23/19 11:30 Alkaline Phosphatase 61 U/L (34-104) 12/23/19 11:30 B-Natriuretic Peptide 101 pg/mL (<=100) H 12/23/19 11:00 Total Protein 6.5 g/dL (6.4-8.9) 12/23/19 11:30 Albumin 3.9 g/dL (3.2-5.2) 12/23/19 11:30 Globulin 2.6 g/dL (2-4) 12/23/19 11:30 Albumin/Globulin Ratio 1.5 (1-3) 12/23/19 11:30 TSH 4.70 mcIU/mL (0.34-5.60) 12/23/19 11:30 12/23/19 12/23/19 12/23/19 11:30 14:36 20:30 Troponin I 0.01 0.01 0.01 Diagnostic Imaging: Transthoracic Echocardiogram 12/23/2019 Conclusions Summary: - Left ventricle: The cavity size is normal. Wall thickness is mildly increased. Systolic function is vigorous. The estimated ejection fraction is 70-75%. Wall motion is normal; there are no regional wall motion abnormalities. - Right ventricle: The cavity size is normal. Systolic function is normal. - Left atrium: The atrium is mildly dilated. - Mitral valve: The findings are consistent with mild stenosis. - Aortic valve: The findings are consistent with very mild stenosis. - Pericardium, extracardiac: There is no significant pericardial effusion. - Pulmonary arteries: Systolic pressure is mildly increased, estimated to be 41 mm Hg. Recommendations: Compared to prior from 11/24/2019, findings are similar. Peak gradient through descending aorta not obtained on this study but was ~ 10 mmHg on study earlier this month. Exam Date: 12/23/19 ct brain IMPRESSION: 1. No acute intracranial abnormality by CT. 2. Mild chronic small vessel ischemic disease is likely. Exam Date: 12/23/19 CXR IMPRESSION: HYPERINFLATION. NO ACTIVE CARDIOPULMONARY DISEASE. Patient Name: MOOSE MONTE Medical Record#: [id number] Ordering Physician: Rosendo Kohler MD Acct.#: [id number] : 1935 Age: 84 Sex: F Location: [address] [place] [address] MEDICAL/TELEMETRY Exam Date: 12/27/19 08 ADM Status: ADM IN Order Information: CHEST PA & LAT 2 VWS Accession Number: [id number] CPT: 31598 INDICATION: Status post device implant. COMPARISON: Comparison is made with a prior chest x-ray study from December. TECHNIQUE: Dual-energy PA and lateral views of the chest were obtained. FINDINGS: The heart is within normal limits in size with prominence of the left ventricle which appears unchanged. The aorta is tortuous and ectatic. The patient is status post placement of a dual-chamber transvenous pacemaker. The lungs are hyperinflated. There is a small left apical pneumothorax. There is a small calcified nodule present at the right lung base measuring 5 mm in size. The results of this exam were called to referring clinicians medical assistant instructor Bernardo. IMPRESSION: 1. SMALL NEW LEFT APICAL PNEUMOTHORAX. 2. 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 <Electronically signed by Erik Grace MD in OV> 12/27/19834 Dictated By: Erik Grace MD Dictated Date/Time: 12/27/19822 Transcribed Date/Time: 12/27/19822 Copy to: CC:Ade Chow MD; Yazan Dhaliwal DO; Riri Reynolds MD; Rosendo Kohler MD ; Sergio Snider MD Imaging - [facility] Imaging - [facility] Imaging - [facility] [address] [address] ph ([phone]) ph ([phone]) ph ([phone]) This report is only to be considered final once signed by the Provider(s) as displayed in the "<Electronically Signed by >" field (s). Absence of a signature indicates the report is in a draft status and still needs to be finalized. In the event this document was created by someone other than the signing Provider, the individual initiating the document will be listed in the "Entered by:" or "Dictated by:" dumont. 1 EKG Data: EKG admission NSR, 1 avb, RBBB, non-specific st/t changes Telemetry; reviewed sinus with periods of atrial pacing. rate 60's Assessment/Plan Patient with symptomatic bradycardia, period of ventricular escape without any significant reversible causes status post DC PPM 12/26/2019; this mornings chest x ray revealed a small left apical pneumothorax. She is to have a repeat CXR at 1400. She denies sob, chest pain, dizziness. She is comfortable in bed. Pacer site was examined. There is no evidence of pocket hematoma, scant dried blood noted on dressing. non tender to palpation. I ordered Keflex 250mg Po TID which she will need for a total of three days. follow up appointment made for next week and placed in DC Plan. She is aware to not lift left arm above shoulder for at least 6 weeks. She may shower starting tomorrow but is to not soak wound. She is to wear left arm immobilizer for 6 weeks. Device check today reviewed. A lead pacing thrshold is 0.5V@ 0.4ms, RV lead pacing threshold 0.75V at 0.4ms. normal device function. Await repeat CXR to determine if small left apical pneumothorax is stable. Will differ need for rehab placement to primary team. PT/OT evaluated patient. Attending: Rosendo Kohler
--- NOTE | 2019-12-27 15:36 | PN ---
Subjective Date of Service: 12/27/19 Interval History: Cheri is happy and no active complain today. She did say the pacer insertion site was sore, but no other concerns. Appreicate ip litigation paralegal rec Objective Active Medications: Acetaminophen (Tylenol Tab*) 650 mg PO Q4H PRN PRN Reason: PAIN - MILD Last Admin: 12/27/19 02:53 Dose: 650 mg Amlodipine Besylate (Norvasc Tab*) 5 mg PO DAILY [facility] Brinzolamide/Brimonidine Tartrate (Simbrinza Oph.Susp(Nf)) 1 drop BOTH EYES BID [facility] Last Admin: 12/27/19 08:01 Dose: Not Given Cephalexin HCl (Keflex Cap*) 250 mg PO TID [facility] Stop: 12/30/19 20:59 Donepezil HCl (Aricept Tab*) 5 mg PO DAILY [facility] Last Admin: 12/27/19 10:33 Dose: 5 mg Vital Signs - 8 hr 12/27/19 12/27/19 12/27/19 08:00 11:00 14:42 Temperature 99.3 F Pulse Rate 70 Respiratory 20 16 Rate Blood Pressure 140/56 102/62 (mmHg) O2 Sat by Pulse 99 Oximetry Oxygen Devices in Use Now: None Exam: Appearance: elderly, pleasant, NAD Ears/Nose/Mouth/Throat: Clear Oropharnyx, Mucous Membranes Moist Neck: NL Appearance and Movements; NL JVP, Trachea Midline Respiratory: Symmetrical Chest Expansion and Respiratory Effort, Clear to Auscultation Cardiovascular: RRR, No Edema, - - 1/6 systolic murmur Abdominal: NL Sounds; No Tenderness; No Distention Extremities: No Edema, No Clubbing, Cyanosis Skin: No Rash or Ulcers, - - left anterior chest device site has scant dried blood noted on dressing. non tender to palpation. no oozing, no hematoma. Neurological: - - awake, alert, conversant Lines/Tubes/Other Access: Clean, Dry and Intact Peripheral IV Result Diagrams: 12/24/19 05:27 12/25/19 05:44 Additional Lab and Data: Lab Results 12/23/19 12/23/19 12/23/19 Range/Units 11:30 11:30 11:30 WBC 11.7 H (3.5-10.8) 10^3/uL RBC 4.59 (3.70-4.87) 10^6 /uL Hgb 13.4 (12.0-16.0) g/dL Hct 40 (35-47) % MCV 88 (80-97) fL MCH 29 (27-31) pg MCHC 33 (31-36) g/dL RDW 14 (10-15) % Plt Count 248 (150-450) 10^3/uL MPV 8.1 (7.4-10.4) fL Neut % (Auto) 88.7 % Lymph % (Auto) 6.1 % [place] % (Auto) 4.5 % Eos % (Auto) 0.2 % Baso % (Auto) 0.5 % Absolute Neuts (auto) 10.4 H (1.5-7.7) 10^3/ul Absolute Lymphs (auto) 0.7 L (1.0-4.8) 10^3/ul Absolute Monos (auto) 0.5 (0-0.8) 10^3/ul Absolute Eos (auto) 0.0 (0-0.6) 10^3/ul Absolute Basos (auto) 0.1 (0-0.2) 10^3/ul Absolute Nucleated RBC 0.0 10^3/ul Nucleated RBC % 0.0 Sodium 143 (135-145) mmol/L Potassium 3.4 L (3.5-5.0) mmol/L Chloride 108 (101-111) mmol/L Carbon Dioxide 25 (22-32) mmol/L Anion Gap 10 (2-11) mmol/L BUN 23 (6-24) mg/dL Creatinine 0.73 (0.51-0.95) mg/dL Est GFR ( Amer) 91.5 (>60) Est GFR (Non-Af Amer) 75.6 (>60) BUN/Creatinine Ratio 31.5 H (8-20) Glucose 148 H (70-100) mg/dL Lactic Acid 1.9 (0.5-2.0) mmol/L Calcium 9.2 (8.6-10.3) mg/dL Magnesium 2.1 (1.9-2.7) mg/dL Total Bilirubin 0.60 (0.2-1.0) mg/dL AST 29 (13-39) U/L ALT 15 (7-52) U/L Alkaline Phosphatase 61 (34-104) U/L Troponin I 0.01 (<0.03) ng/mL Total Protein 6.5 (6.4-8.9) g/dL Albumin 3.9 (3.2-5.2) g/dL Globulin 2.6 (2-4) g/dL Albumin/Globulin Ratio 1.5 (1-3) TSH 4.70 (0.34-5.60) mcIU/mL Microbiology and Other Data: Microbiology 12/23/19 15:28 Nasal Screen MRSA (PCR) - Final Nasal Mrsa Not Detected Assess/Plan/Problems-Billing Assessment: 84W with HTN, dementia, glaucoma, and h/o perforated gastric ulcer, presents after near-syncope, found with sinus bradycardia and ventricular escape, started on pacer. - Patient Problems (1) Bradycardia Comment: - symptomatic bradycardia, severe sinus abi and periods of ventricular escape in telemetry - appreciate cards recs - atrial-ventricular dual-pacer was placed today, tolerating well, iv cefazolin post op - monitor overnight - restart aricept on discharge. (2) Dementia Comment: - continue donepezil on discharge. (3) Glaucoma Comment: Continue home Simbrinza gtt. (4) HTN (hypertension) Comment: - continue amlodipine - monitor BPs (5) DVT prophylaxis Comment: Sc Lovenox Status and Disposition: Inpatient Medicine. awaiting RAPHAEL Attestation Documenting Resident: Hunter Supervising Physician: Geraldo Attending/Supervising Physician Comment: PTX stable. No recurrance of bradycardia or syncopal symptoms. Pending placement at [facility]. Attestation: This service has been performed in part by a resident under the direction of a teaching physician.IGeraldo, performed the service, or was physically present during the critical, or lagos portions of the service, furnished by the resident. I participated in the management of the patient.
[2019-12-27] MEDS: Cephalexin CAP* 250 MG PO SCH (21:14)
[2019-12-28] MEDS: Cephalexin CAP* 250 MG PO SCH ×3 (08:17→21:03)
[2019-12-28] MEDS: Brinzolamid/Brimonidin OPH(NF) 1 DROP BTL BOTH EYES SCH ×2 (08:17→21:03)
[2019-12-28] MEDS: amLODIPine TAB* 5 MG PO SCH (08:18)
[2019-12-28] MEDS: Donepezil TAB* 5 MG PO SCH (08:18)
[2019-12-28] MEDS ORDERED: amLODIPine TAB* 5 MG PO SCH (09:00)
--- NOTE | 2019-12-28 11:07 | DS ---
DATE OF ADMISSION: 12/23/2019. DATE OF DISCHARGE: 12/28/2019. PRIMARY CARE PHYSICIAN: Dr. Riri Reynolds. PRIMARY DIAGNOSES: 1. Symptomatic bradycardia. 2. Dementia. SECONDARY DIAGNOSES: 1. Hypertension. 2. Glaucoma. CONSULTS: Dr. Yazan Dhaliwal and Dr. Rosendo Kohler of Cardiology. PROCEDURES: Dual chamber pacemaker implantation on December 26. DISCHARGE MEDICATIONS: 1. Amlodipine 5 mg daily. 2. Donepezil 5 mg daily. 3. Cephalexin 250 mg three times a day until the evening of December 29. 4. Simbrinza eye drops one drop to each eye twice a day. 5. Timolol one drop to both eyes twice a day. HISTORY OF PRESENT ILLNESS: Ms. Santos is an 84-year-old woman with hypertension, dementia, and glaucoma who presents after a near syncopal episode in her employee benefits attorney's office on the day of presentation. She was in her usual state of health until that time. Most history is obtained by her healthcare proxy's son at the bedside as he was with her in the employee benefits attorney's office, and the patient has severe dementia without memory of the event. This family friend states that he was with her in the employee benefits attorney's office to change the healthcare proxy paperwork to appointment him as the new HCP, since his mother, the current healthcare proxy, also has dementia. He said they were having a normal conversation in the waiting room, looked over to the patient and she was staring blankly at the floor. When the employee benefits attorney came out, the patient was able to ambulate, but her gait was noticeably slowed and shuffling. She began to sink to the floor, but was lowered to a chair and then eventually regained full consciousness. She never completely lost consciousness. HOSPITAL COURSE: In the emergency room, the patient was in her usual state of health and asymptomatic with normal heart on telemetry; however, she eventually had a brief episode of bradycardia into the 20s that resolved spontaneously and was asymptomatic. Because of this, she had pacer pads placed and had Atropine kept at the bedside and was admitted to the ICU for further monitoring. Pacer pads and atropine were not needed throughout admission. Cardiology was consulted and recommended a pacemaker implantation after the weekend. Over the weekend, the patient had no further episodes of bradycardia or unresponsiveness. She was maintained on telemetry without significant events and transferred to the general medicine floors. On Dec 26, she underwent a dual chamber pacemaker implantation with Dr. Kohler and tolerated the procedure well. However , she did develop a very small pneumothorax after the procedure that was stable on repeat chest x-ray. The patient continued to deny symptoms after pacemaker implantation. She was initiated on Keflex 250 mg t.i.d. which she needs a total of three days postimplantation. She was instructed not to lift her left arm above the shoulder for at least six weeks. She will need to wear a left arm immobilizer for six weeks. While admitted, she was seen and evaluated by Physical Therapy who recommended continued acute skilled physical therapy with rehab at discharge. The patient was amenable to this plan. PHYSICAL EXAMINATION: General: She is a well-appearing, frail, elderly woman in no acute distress, who is alert and interactive. She makes good eye contact. She is very pleasant. Vital Signs: Afebrile, heart rate 70s, blood pressure 161/67, respiratory rate 16, oxygen saturation 100 percent on room air. Neck: No JVD. Lungs: Clear to auscultation bilaterally. Heart: Regular rate and rhythm. 1/6 systolic murmur. Abdomen: Soft, nontender, nondistended. Extremities: Warm and well-perfused without evidence of edema. Chest wall without rash or ulcer. Device in place under skin without evidence for hematoma. Dressing clear, dry, and intact. Nontender. Neuro: A and O times one, unable to name location, date, or president. PERTINENT DIAGNOSTIC STUDIES: 1. CBC, BMP, LFT's are unremarkable. 2. Troponin negative times three. 3. TSH 4.7. 4. Chest x-ray on afternoon prior to discharge with hyperinflation and stable small apical pneumothorax. 5. Transthoracic echocardiogram with LV cavity size normal, wall thickness mildly increased, systolic function is vigorous with the estimated EF 70 to 75 percent, wall motion normal, LA mildly dilated, MV with mild stenosis, AV with very mild stenosis, PASP mildly increased to [address] without acute intracranial abnormality, mild chronic small vessel ischemic disease is likely. DISCHARGE PLAN: The patient will be discharged to [facility] for ongoing skilled physical therapy needs. She should also continue to follow-up with her primary care physician for management of her chronic medical issues. For her symptomatic bradycardia, she is status post implantable pacemaker, dual chamber. She should continue to follow-up with Dr. Kohler and she was given an appointment for January 06 at noon. She was instructed by the Cardiology team to not lift her left arm above her shoulder for six weeks. She is to wear left arm immobilizer for six weeks until approximately mid January. No significant changes were made to her home medications, except for the addition of Cephalexin, which will need to be continued for a total of three days status post device implantation. Her last dose will be on the evening of December 29. DIET: She should eat a healthy diet low in processed foods. ACTIVITY: As tolerated. DISPOSITION: To [facility]. CONDITION ON DISCHARGE: Improved. TIME SPENT: Approximately 60 minutes were spent on the discharge of this patient, more than half of which was spent with care coordination at bedside for interview and exam. [id number]/[facility] #: [id number] ANJANA
--- NOTE | 2019-12-28 17:23 | PN ---
Subjective Date of Service: 12/28/19 Interval History: Patient is doing well, no complain. Objective Active Medications: Acetaminophen (Tylenol Tab*) 650 mg PO Q4H PRN PRN Reason: PAIN - MILD Last Admin: 12/27/19 02:53 Dose: 650 mg Amlodipine Besylate (Norvasc Tab*) 5 mg PO DAILY [facility] Last Admin: 12/28/19 08:18 Dose: 5 mg Brinzolamide/Brimonidine Tartrate (Simbrinza Oph.Susp(Nf)) 1 drop BOTH EYES BID [facility] Last Admin: 12/28/19 08:17 Dose: Not Given Cephalexin HCl (Keflex Cap*) 250 mg PO TID [facility] Stop: 12/30/19 20:59 Last Admin: 12/28/19 08:17 Dose: 250 mg Donepezil HCl (Aricept Tab*) 5 mg PO DAILY [facility] Last Admin: 12/28/19 08:18 Dose: 5 mg Oxygen Devices in Use Now: None Exam: Appearance: elderly, pleasant, NAD Ears/Nose/Mouth/Throat: Clear Oropharnyx, Mucous Membranes Moist Respiratory: Symmetrical Chest Expansion and Respiratory Effort, Clear to Auscultation Cardiovascular: RRR, No Edema. Abdominal: NL Sounds; No Tenderness; No Distention Extremities: No Edema, No Clubbing, Cyanosis Skin: No Rash or Ulcers, - - left chest pacer area non tender to palpation. no oozing, no hematoma. Neurological: - - awake, alert, conversant Result Diagrams: 12/24/19 05:27 12/25/19 05:44 Additional Lab and Data: Lab Results 12/23/19 12/23/19 12/23/19 Range/Units 11:30 11:30 11:30 WBC 11.7 H (3.5-10.8) 10^3/uL RBC 4.59 (3.70-4.87) 10^6 /uL Hgb 13.4 (12.0-16.0) g/dL Hct 40 (35-47) % MCV 88 (80-97) fL MCH 29 (27-31) pg MCHC 33 (31-36) g/dL RDW 14 (10-15) % Plt Count 248 (150-450) 10^3/uL MPV 8.1 (7.4-10.4) fL Neut % (Auto) 88.7 % Lymph % (Auto) 6.1 % Cherry % (Auto) 4.5 % Eos % (Auto) 0.2 % Baso % (Auto) 0.5 % Absolute Neuts (auto) 10.4 H (1.5-7.7) 10^3/ul Absolute Lymphs (auto) 0.7 L (1.0-4.8) 10^3/ul Absolute Monos (auto) 0.5 (0-0.8) 10^3/ul Absolute Eos (auto) 0.0 (0-0.6) 10^3/ul Absolute Basos (auto) 0.1 (0-0.2) 10^3/ul Absolute Nucleated RBC 0.0 10^3/ul Nucleated RBC % 0.0 Sodium 143 (135-145) mmol/L Potassium 3.4 L (3.5-5.0) mmol/L Chloride 108 (101-111) mmol/L Carbon Dioxide 25 (22-32) mmol/L Anion Gap 10 (2-11) mmol/L BUN 23 (6-24) mg/dL Creatinine 0.73 (0.51-0.95) mg/dL Est GFR ( Amer) 91.5 (>60) Est GFR (Non-Af Amer) 75.6 (>60) BUN/Creatinine Ratio 31.5 H (8-20) Glucose 148 H (70-100) mg/dL Lactic Acid 1.9 (0.5-2.0) mmol/L Calcium 9.2 (8.6-10.3) mg/dL Magnesium 2.1 (1.9-2.7) mg/dL Total Bilirubin 0.60 (0.2-1.0) mg/dL AST 29 (13-39) U/L ALT 15 (7-52) U/L Alkaline Phosphatase 61 (34-104) U/L Troponin I 0.01 (<0.03) ng/mL Total Protein 6.5 (6.4-8.9) g/dL Albumin 3.9 (3.2-5.2) g/dL Globulin 2.6 (2-4) g/dL Albumin/Globulin Ratio 1.5 (1-3) TSH 4.70 (0.34-5.60) mcIU/mL Microbiology and Other Data: Microbiology 12/23/19 15:28 Nasal Screen MRSA (PCR) - Final Nasal Mrsa Not Detected Assess/Plan/Problems-Billing Assessment: 84W with HTN, dementia, glaucoma, and h/o perforated gastric ulcer, presents after near-syncope, found with sinus bradycardia and ventricular escape, a pacer was placed. - Patient Problems (1) Bradycardia Current Visit: Yes Status: Acute Code(s): R00.1 - BRADYCARDIA, UNSPECIFIED SNOMED Code(s): 75677191 Comment: - symptomatic bradycardia, severe sinus abi and periods of ventricular escape in telemetry - atrial-ventricular dual-pacer was placed, tolerating well, cephalexin (12/27-12/30 ) - off tele today (2) Dementia Current Visit: Yes Status: Acute Code(s): F03.90 - UNSPECIFIED DEMENTIA WITHOUT BEHAVIORAL DISTURBANCE SNOMED Code(s): 80588715 Comment: - continue donepezil on discharge. (3) Glaucoma Current Visit: Yes Status: Chronic Code(s): H40.9 - UNSPECIFIED GLAUCOMA SNOMED Code(s): 13605729 Comment: Continue home Simbrinza gtt. (4) HTN (hypertension) Current Visit: Yes Status: Chronic Code(s): I10 - ESSENTIAL (PRIMARY) HYPERTENSION SNOMED Code(s): 12681763 Comment: - continue amlodipine - monitor BPs (5) DVT prophylaxis Current Visit: Yes Status: Acute Code(s): JDV9129 - SNOMED Code(s): 014692086 Comment: Alec Dalton Status and Disposition: Inpatient Medicine. awaiting [facility] [place] Attestation Documenting Resident: Ligia Harrison Supervising Physician: Ade Chow Attestation: This service has been performed in part by a resident under the direction of a teaching physician.I, Ade Chow, performed the service, or was physically present during the critical, or lagos portions of the service, furnished by the resident. I participated in the management of the patient.
--- NOTE | 2019-12-29 10:05 | DS ---
ADDENDUM: DISCHARGE SUMMARY: UPDATED DAY OF DISCHARGE: 12/29/19 UPDATED HOSPITAL COURSE: Bed at [facility] was taken and the patient was unable to be discharged on planned day of discharge. She was kept one more day without further events. CONDITION: Good. [id number]/[facility] #: [id number] MTDD
[2019-12-29] MEDS: Cephalexin CAP* 250 MG PO SCH ×2 (10:10→15:39)
[2019-12-29] MEDS: amLODIPine TAB* 5 MG PO SCH (10:10)
[2019-12-29] MEDS: Donepezil TAB* 5 MG PO SCH (10:10)
[2019-12-29] MEDS: Brinzolamid/Brimonidin OPH(NF) 1 DROP BTL BOTH EYES SCH (11:25)
[2019-12-29 12:06] VITALS: BP 138/58
== END 2019-12-29 17:13 | DRG 243 ==
LOC: ED 10:51 → ICU 14:19 → MEDTELE 12-24 15:46
PROVIDERS: ADMIT Internal Medicine; ATTEND Internal Medicine
PROC: 02HK3JZ Insertion of Pacemaker Lead into Right Ventricle, Percutaneous Approach (ICD-10-PCS; 2019-12-26)
PROC: 02H63JZ Insertion of Pacemaker Lead into Right Atrium, Percutaneous Approach (ICD-10-PCS; 2019-12-26)
PROC: 0JH606Z Insertion of Pacemaker, Dual Chamber into Chest Subcutaneous Tissue and Fascia, Open Approach (ICD-10-PCS; principal; 2019-12-26 12:30)
DX: R00.1 Bradycardia, unspecified (principal); J95.811 Postprocedural pneumothorax; I10 Essential (primary) hypertension; F03.90 Unspecified dementia, unspecified severity, without behavioral disturbance, psychotic disturbance, mood disturbance, and anxiety; H40.9 Unspecified glaucoma; I49.3 Ventricular premature depolarization; R55 Syncope and collapse; Z66 Do not resuscitate; M19.90 Unspecified osteoarthritis, unspecified site; G43.909 Migraine, unspecified, not intractable, without status migrainosus; Z79.899 Other long term (current) drug therapy
CPT/HCPCS: 33208; 36415; 70450; 71045; 71046; 80048; 80053; 83605; 83735; 83880; 84443; 84484; 85025; 85027; 87641; 93005; 93306; 96361; 96374; 99156; 99157; 99285; A9270-GY; C1785; C1892; C1898; J0461; J0690; J1650; J2250; J2310; J2405; J3010; J3490

== ENCOUNTER 2021-07-26 14:06 | Inpatient (IN) ==
[2021-07-26] MEDS ORDERED: Ondansetron 4 mg VIAL 2 MG/ML 2 ml VIAL IV ONE (14:55)
[2021-07-26] MEDS ORDERED: hydrALAZINE 20 mg/ml 1 ML Vial IV IV SLOW PU ONE (14:55)
[2021-07-26] MEDS: NS 0.9% 1000 ml BAG 1,000 ML IV SCH ×2 (15:48→21:54)
[2021-07-26 16:41] LABS: ABS Lymphocytes 0.5 10^3/ul (1.0-4.8); ABS Monocytes 0.3 10^3/ul (0-0.8); ABS Neutrophils 9.8 10^3/ul (1.5-7.7); Eosinophil % 0.4 %; Hematocrit 45 % (35-47); Hemoglobin 15.3 g/dL (12.0-16.0); Lymphocyte % 4.7 %; Mean Corpuscular HGB Conc 34 g/dL (31-36); Mean Corpuscular Hemoglobin 29 pg (27-31); Mean Corpuscular Volume 85 fL (80-97); Mean Platelet Volume 8.3 fL (7.4-10.4); Nucleated Red Blood Cells % 0.2; Platelet Count 169 10^3/uL (150-450); Red Blood Count 5.24 10^6 /uL (3.70-4.87); Red Cell Distribution Width 14 % (10-15); White Blood Count 10.7 10^3/uL (3.5-10.8)
[2021-07-26 16:55] LABS: Albumin 4.4 g/dL (3.2-5.2); Albumin/Globulin Ratio 1.4 (1-3); Calcium 9.1 mg/dL (8.6-10.3); EGFR Non-African American 111.5 (>60); Globulin 3.2 g/dL (2-4); Magnesium 1.9 mg/dL (1.9-2.7); Potassium 3.4 mmol/L (3.5-5.0); Total Bilirubin 0.8 mg/dL (0.2-1.0); Total Protein 7.6 g/dL (6.4-8.9); Troponin I 0.01 ng/mL (<0.03)
[2021-07-26 16:55] LABS: Urine Appearance Clear; Urine Bilirubin Negative (Negative); Urine Blood Negative (Negative); Urine Color Colorless; Urine Glucose 3+(>=500 mg/dL) (Negative); Urine Ketones Negative (Negative); Urine Nitrite Negative (Negative); Urine Protein Negative (Negative); Urine Specific Gravity 1.007 (1.002-1.030); Urine Urobilinogen Negative (Negative)
[2021-07-26] MEDS ORDERED: Iohexol 300 (CONTRAST) 10 ML SDV IV ONE (17:03)
[2021-07-26] MEDS ORDERED: Prochlorperazine 5 mg/ml 2 ml VIAL (10 mg) IV PRN (19:35)
[2021-07-26] MEDS ORDERED: Potassium Chlor 10 meq TAB PO ONE (19:35)
[2021-07-26] MEDS ORDERED: Potassium Chlor 20 meq TAB.ER PO ONE (20:00)
[2021-07-26] MEDS ORDERED: Enoxaparin 30 MG/0.3 ML SYR SUBCUT SCH (21:00)
[2021-07-26] MEDS: Timolol 0.5% OPTH.SOL BTL BOTH EYES SCH ×2 (21:53→22:01)
[2021-07-27 05:23] LABS: ABS Eosinophils 0.1 10^3/ul (0-0.6); ABS Lymphocytes 1.1 10^3/ul (1.0-4.8); ABS Neutrophils 7.4 10^3/ul (1.5-7.7); Eosinophil % 0.5 %; Hematocrit 44 % (35-47); Hemoglobin 14.8 g/dL (12.0-16.0); Lymphocyte % 11.3 %; Mean Corpuscular HGB Conc 34 g/dL (31-36); Mean Corpuscular Hemoglobin 29 pg (27-31); Mean Corpuscular Volume 86 fL (80-97); Mean Platelet Volume 7.9 fL (7.4-10.4); Platelet Count 228 10^3/uL (150-450); Red Blood Count 5.13 10^6 /uL (3.70-4.87); Red Cell Distribution Width 14 % (10-15); White Blood Count 9.6 10^3/uL (3.5-10.8)
[2021-07-27] MEDS: hydrALAZINE 20 mg/ml 1 ML Vial IV IV SLOW PU PRN (05:34)
[2021-07-27 05:37] LABS: Calcium 9.4 mg/dL (8.6-10.3); EGFR African American 112.3 (>60); EGFR Non-African American 92.8 (>60); Potassium 3.4 mmol/L (3.5-5.0)
[2021-07-27] MEDS ORDERED: Potassium Chlor 20 meq TAB.ER PO ONE (06:49)
[2021-07-27] MEDS: Timolol 0.5% OPTH.SOL BTL BOTH EYES SCH ×2 (07:44→20:45)
[2021-07-27 08:08] LABS: Magnesium 1.9 mg/dL (1.9-2.7)
[2021-07-28 06:00] LABS: Calcium 9.2 mg/dL (8.6-10.3); EGFR African American 108.2 (>60); EGFR Non-African American 89.4 (>60); Potassium 3.6 mmol/L (3.5-5.0)
[2021-07-28] MEDS: hydrALAZINE 20 mg/ml 1 ML Vial IV IV SLOW PU PRN (09:11)
[2021-07-28] MEDS: Timolol 0.5% OPTH.SOL BTL BOTH EYES SCH ×2 (09:12→21:15)
[2021-07-29 04:04] LABS: Hematocrit 41 % (35-47); Hemoglobin 13.7 g/dL (12.0-16.0); Mean Corpuscular HGB Conc 33 g/dL (31-36); Mean Corpuscular Hemoglobin 29 pg (27-31); Mean Corpuscular Volume 87 fL (80-97); Mean Platelet Volume 7.6 fL (7.4-10.4); Platelet Count 204 10^3/uL (150-450); Red Blood Count 4.72 10^6 /uL (3.70-4.87); Red Cell Distribution Width 15 % (10-15); White Blood Count 7.2 10^3/uL (3.5-10.8)
[2021-07-29 04:31] LABS: Calcium 8.8 mg/dL (8.6-10.3); EGFR African American 92.7 (>60); EGFR Non-African American 76.6 (>60); Potassium 3.4 mmol/L (3.5-5.0)
[2021-07-29] MEDS: Timolol 0.5% OPTH.SOL BTL BOTH EYES SCH ×2 (09:38→21:45)
[2021-07-30] MEDS: Timolol 0.5% OPTH.SOL BTL BOTH EYES SCH ×2 (08:05→22:29)
[2021-07-31] MEDS: Timolol 0.5% OPTH.SOL BTL BOTH EYES SCH (09:40)
[2021-07-31 12:47] VITALS: BP 142/53
== END 2021-07-31 13:50 | disposition home or self-care (01) | DRG 392 ==
LOC: ED 14:06 → MED 14:06 → SUATTDRO 19:16
PROVIDERS: ADMIT Hospitalist; ATTEND Internal Medicine